=== PATIENT | female | born 1950 | race Caucasian/White ===

== ENCOUNTER 2019-04-14 14:52 | Inpatient (IN) ==
[2019-04-14] MEDS ORDERED: ALBUTEROL/IPRATROPIUM 3 ML NEB RESP TX STA (16:04)
[2019-04-14] MEDS ORDERED: FUROSEMIDE 100 MG/10 ML VIAL IV STA (16:04)
[2019-04-14 16:50] LABS: Basophils # 0.1 10*3/uL (0.0-0.2); Basophils % 1.1 % (0.0-0.8); Eosinophils # 0.2 10*3/uL (0.0-0.87); Eosinophils % 2.2 % (0.00-10.9); Hematocrit 53.5 VOL% (35.7-47.0); Hemoglobin 15.4 GM/DL (12.0-16.0); Immature Granulocytes % 0.3 %; Immature Granulocytes Absolute 0.03 #; Lymphocytes # 1.3 10*3/uL (1.4-4.0); Lymphocytes % 13.9 % (21.3-54.2); Mean Corpuscular HGB Conc 28.8 GM/DL (32-36); Mean Corpuscular Volume 93.2 FL (87-102); Monocytes % 10.8 % (1.7-12.7); Neutrophils % 71.7 % (38.7-73.9); Platelet Count 271 T/CUMM (130-400); Red Blood Count 5.74 MC/CUMM (3.8-5.5); Red Cell Distribution Width 15.3 % (9.3-17.3)
[2019-04-14 16:58] LABS: INR 1.2; PT Patient Result 12.7 SECS; Partial Thromboplastin Time 25.1 SECS (0-40)
[2019-04-14 17:06] LABS: Apearance,Urine CLEAR (Clear); Bilirubin,Urine Negative (Negative); Blood, Urine Negative (Negative); Glucose,Urine (UA) Negative (Negative); Ketones,Urine Negative (Negative); Mucus,Urine Occasional /LPF (Occasional); Nitrite,Urine Negative (Negative); Protein,Urine Negative; RBC,Urine 1 /HPF (0-4); Squamous Epithelial Cell,Urine Occasional /HPF (0-10); Urine Color Amber (Yellow); Urine Specific Gravity 1.027 (1.001-1.035); Urine Urobilinogen < 2.0 EU/DL (0.2-1.0); WBC,Urine 4 /HPF (0-6)
[2019-04-14 17:17] LABS: Alanine Aminotransferase 21 U/L (13-56); Albumin 3.2 G/DL (3.4-5.0); Alkaline Phosphatase 126 U/L (45-117); Aspartate Amino Transferase 25 U/L (0-37); Blood Urea Nitrogen 30 MG/DL (7-18); Calcium 8.9 MG/DL (8.5-10.1); Glucose 104 MG/DL (74-106); Osmolality,Calculated 293.7 MOS/KG (273-304); Total Protein 7.1 G/DL (6.4-8.3); Troponin I < 0.015 NG/ML (0.00-0.045)
[2019-04-14 17:35] LABS: Giant Platelets Few
[2019-04-14 17:36] LABS: Platelet Estimate Adequate
[2019-04-14] MEDS ORDERED: MAGNESIUM SULF RIDER 4 GM in PREMIX 1 EACH IV PRN (20:03)
[2019-04-14] MEDS ORDERED: MAGNESIUM SULF RIDER 2 GM in PREMIX 1 EACH IV PRN (20:03)
[2019-04-14] MEDS ORDERED: ONDANSETRON 4 MG/2 ML VIAL IV PRN (20:03)
[2019-04-14] MEDS ORDERED: ENOXAPARIN 40 MG/0.4 ML SYRINGE SUBCUT SCH (21:00)
[2019-04-14] MEDS ORDERED: ALBUTEROL/IPRATROPIUM 3 ML NEB RESP TX PRN (21:05)
[2019-04-15] MEDS: ACETAMINOPHEN 325 MG TABLET PO PRN ×3 (01:38→20:53)
[2019-04-15 04:44] LABS: Basophils # 0.1 10*3/uL (0.0-0.2); Basophils % 0.7 % (0.0-0.8); Eosinophils # 0.3 10*3/uL (0.0-0.87); Eosinophils % 2.6 % (0.00-10.9); Immature Granulocytes % 0.5 %; Immature Granulocytes Absolute 0.05 #; Lymphocytes # 1.4 10*3/uL (1.4-4.0); Lymphocytes % 14.2 % (21.3-54.2); Mean Corpuscular HGB Conc 27.7 GM/DL (32-36); Mean Corpuscular Volume 94.1 FL (87-102); Mean Platelet Volume 10.6 FL (9.6-12.0); Monocytes % 11.9 % (1.7-12.7); Neutrophils % 70.1 % (38.7-73.9); Platelet Count 260 T/CUMM (130-400); Red Blood Count 5.75 MC/CUMM (3.8-5.5); Red Cell Distribution Width 15.5 % (9.3-17.3); White Blood Count 9.7 T/CUMM (4-12)
[2019-04-15 05:16] LABS: Hematocrit 53.2 VOL% (35.7-47.0); Hemoglobin 14.9 GM/DL (12.0-16.0)
[2019-04-15 05:30] LABS: Calcium 8.8 MG/DL (8.5-10.1); Osmolality,Calculated 293.7 MOS/KG (273-304); Thyroid Stimulating Hormone 1.97 uIU/ml (0.358-3.74)
[2019-04-15 05:32] LABS: Anisocytosis Slight; Microcytosis 1+; Polychromasia Slight
[2019-04-15 05:33] LABS: Platelet Estimate Normal; Stomatocytes Few
[2019-04-15 08:08] LABS: Risk Ratio 2.64; VLDL CHOLESTEROL 11.8 MG/DL
[2019-04-15] MEDS: ASPIRIN CHEW 81 MG TABLET PO SCH (08:58)
[2019-04-15] MEDS: LISINOPRIL 20 MG TABLET PO SCH (08:58)
[2019-04-15] MEDS: amLODIPine 10 MG TABLET PO SCH (08:58)
[2019-04-15] MEDS: metOLazone 2.5 MG TABLET PO SCH (08:58)
[2019-04-15] MEDS: METOPROLOL TARTRATE 25 MG TABLET PO SCH (08:58)
[2019-04-15] MEDS: PANTOPRAZOLE 40 MG TABLET PO SCH (08:59)
[2019-04-15] MEDS: FUROSEMIDE 40 MG/4 ML VIAL IV SCH ×2 (08:59→17:37)
[2019-04-15] MEDS ORDERED: ENOXAPARIN 100 MG/ML SYRINGE SUBCUT SCH (11:30)
[2019-04-15] MEDS ORDERED: FUROSEMIDE 40 MG/4 ML VIAL ONE (17:18)
[2019-04-15] MEDS: SERTRALINE 25 MG TABLET PO SCH (20:53)
[2019-04-15] MEDS: APIXABAN 5 MG TABLET PO SCH (20:57)
[2019-04-16 05:44] LABS: Calcium 8.9 MG/DL (8.5-10.1)
[2019-04-16 06:14] LABS: Basophils # 0.1 10*3/uL (0.0-0.2); Basophils % 0.6 % (0.0-0.8); Eosinophils # 0.3 10*3/uL (0.0-0.87); Eosinophils % 2.6 % (0.00-10.9); Hematocrit 51.9 VOL% (35.7-47.0); Hemoglobin 14.6 GM/DL (12.0-16.0); Immature Granulocytes % 0.5 %; Immature Granulocytes Absolute 0.05 #; Lymphocytes % 9.3 % (21.3-54.2); Mean Corpuscular HGB Conc 28.1 GM/DL (32-36); Mean Corpuscular Volume 93.7 FL (87-102); Mean Platelet Volume 10.8 FL (9.6-12.0); Monocytes % 11.8 % (1.7-12.7); Neutrophils % 75.2 % (38.7-73.9); Platelet Count 245 T/CUMM (130-400); Red Blood Count 5.54 MC/CUMM (3.8-5.5); Red Cell Distribution Width 14.9 % (9.3-17.3); White Blood Count 10.5 T/CUMM (4-12)
[2019-04-16 06:39] LABS: Platelet Estimate Normal; Polychromasia Slight
[2019-04-16 06:40] LABS: Anisocytosis Slight
[2019-04-16] MEDS: ASPIRIN CHEW 81 MG TABLET PO SCH (10:23)
[2019-04-16] MEDS: metOLazone 2.5 MG TABLET PO SCH (10:24)
[2019-04-16] MEDS: METOPROLOL TARTRATE 25 MG TABLET PO SCH (10:25)
[2019-04-16] MEDS: APIXABAN 5 MG TABLET PO SCH ×2 (10:25→20:30)
[2019-04-16] MEDS: PANTOPRAZOLE 40 MG TABLET PO SCH (10:25)
[2019-04-16] MEDS: FUROSEMIDE 40 MG TABLET PO SCH (10:25)
[2019-04-16] MEDS: LISINOPRIL 20 MG TABLET PO SCH (10:27)
[2019-04-16] MEDS ORDERED: BISACODYL 5 MG TABLET PO ONE (10:28)
[2019-04-16] MEDS: amLODIPine 10 MG TABLET PO SCH (10:28)
[2019-04-16] MEDS ORDERED: LACTULOSE 20 GM/30 ML UDCUP PO ONE (10:28)
[2019-04-16] MEDS ORDERED: MAGNESIUM HYDROXIDE SUSP 30 ML UDCUP PO ONE (10:28)
[2019-04-16] MEDS: ACETAMINOPHEN 325 MG TABLET PO PRN ×2 (10:28→17:35)
[2019-04-16] MEDS ORDERED: TUBERCULIN SKIN TEST 0.1 ML SYRINGE INTRADERM ONE (16:05)
[2019-04-16] MEDS: SERTRALINE 25 MG TABLET PO SCH (20:30)
[2019-04-16] MEDS: MELATONIN 3 MG TABLET PO PRN (23:29)
[2019-04-17 05:53] LABS: Calcium 9.1 MG/DL (8.5-10.1); Osmolality,Calculated 279.5 MOS/KG (273-304)
[2019-04-17] MEDS ORDERED: SODIUM PHOSPHATE ENEMA 133 ML BOTTLE RECTAL ONE (07:04)
[2019-04-17] MEDS: PANTOPRAZOLE 40 MG TABLET PO SCH (09:20)
[2019-04-17] MEDS: ACETAMINOPHEN 325 MG TABLET PO PRN (09:20)
[2019-04-17] MEDS: ASPIRIN CHEW 81 MG TABLET PO SCH (09:21)
[2019-04-17] MEDS: metOLazone 2.5 MG TABLET PO SCH (09:21)
[2019-04-17] MEDS: FUROSEMIDE 40 MG TABLET PO SCH (09:21)
[2019-04-17] MEDS: LISINOPRIL 20 MG TABLET PO SCH (09:21)
[2019-04-17] MEDS: APIXABAN 5 MG TABLET PO SCH ×2 (09:21→21:48)
[2019-04-17] MEDS: METOPROLOL TARTRATE 25 MG TABLET PO SCH (09:21)
[2019-04-17] MEDS: amLODIPine 10 MG TABLET PO SCH (09:21)
[2019-04-17] MEDS: SERTRALINE 25 MG TABLET PO SCH (21:48)
[2019-04-17] MEDS: MELATONIN 3 MG TABLET PO PRN (22:08)
[2019-04-18] MEDS: ACETAMINOPHEN 325 MG TABLET PO PRN ×3 (04:44→16:59)
[2019-04-18] MEDS: amLODIPine 10 MG TABLET PO SCH (09:37)
[2019-04-18] MEDS: PANTOPRAZOLE 40 MG TABLET PO SCH (09:38)
[2019-04-18] MEDS: LISINOPRIL 20 MG TABLET PO SCH (09:38)
[2019-04-18] MEDS: metOLazone 2.5 MG TABLET PO SCH (09:38)
[2019-04-18] MEDS: ASPIRIN CHEW 81 MG TABLET PO SCH (09:38)
[2019-04-18] MEDS: FUROSEMIDE 40 MG TABLET PO SCH (09:38)
[2019-04-18] MEDS: APIXABAN 5 MG TABLET PO SCH ×2 (09:38→21:09)
[2019-04-18] MEDS: METOPROLOL TARTRATE 25 MG TABLET PO SCH (09:38)
[2019-04-18] MEDS: MELATONIN 3 MG TABLET PO PRN (21:09)
[2019-04-18] MEDS: SERTRALINE 25 MG TABLET PO SCH (21:09)
[2019-04-19] MEDS: METOPROLOL TARTRATE 25 MG TABLET PO SCH (09:27)
[2019-04-19] MEDS: metOLazone 2.5 MG TABLET PO SCH (09:27)
[2019-04-19] MEDS: LISINOPRIL 20 MG TABLET PO SCH (09:27)
[2019-04-19] MEDS: FUROSEMIDE 40 MG TABLET PO SCH (09:28)
[2019-04-19] MEDS: amLODIPine 10 MG TABLET PO SCH (09:28)
[2019-04-19] MEDS: ASPIRIN CHEW 81 MG TABLET PO SCH (09:28)
[2019-04-19] MEDS: PANTOPRAZOLE 40 MG TABLET PO SCH (09:28)
[2019-04-19] MEDS: APIXABAN 5 MG TABLET PO SCH ×2 (09:28→21:17)
[2019-04-19] MEDS: SERTRALINE 25 MG TABLET PO SCH (21:17)
[2019-04-19] MEDS: ACETAMINOPHEN 325 MG TABLET PO PRN (23:15)
[2019-04-20] MEDS: METOPROLOL TARTRATE 25 MG TABLET PO SCH (09:24)
[2019-04-20] MEDS: APIXABAN 5 MG TABLET PO SCH ×2 (09:24→21:17)
[2019-04-20] MEDS: PANTOPRAZOLE 40 MG TABLET PO SCH (09:24)
[2019-04-20] MEDS: metOLazone 2.5 MG TABLET PO SCH (09:24)
[2019-04-20] MEDS: LISINOPRIL 20 MG TABLET PO SCH (09:24)
[2019-04-20] MEDS: ASPIRIN CHEW 81 MG TABLET PO SCH (09:24)
[2019-04-20] MEDS: FUROSEMIDE 40 MG TABLET PO SCH (09:24)
[2019-04-20] MEDS: amLODIPine 10 MG TABLET PO SCH (09:33)
[2019-04-20] MEDS ORDERED: methylPREDNISolone ACETATE 40 MG/1 ML VIAL INTRAARTIC ONE (10:14)
[2019-04-20] MEDS ORDERED: LIDOCAINE 1% 20 ML VIAL INFILTRAT ONE (10:15)
[2019-04-20] MEDS: POLYETHYLENE GLYCOL POWDER 17 GM PACK PO SCH ×2 (14:59→21:17)
[2019-04-20] MEDS: SERTRALINE 25 MG TABLET PO SCH (21:17)
[2019-04-21] MEDS: LISINOPRIL 20 MG TABLET PO SCH (09:56)
[2019-04-21] MEDS: APIXABAN 5 MG TABLET PO SCH (09:56)
[2019-04-21] MEDS: METOPROLOL TARTRATE 25 MG TABLET PO SCH (09:56)
[2019-04-21] MEDS: FUROSEMIDE 40 MG TABLET PO SCH (09:56)
[2019-04-21] MEDS: amLODIPine 10 MG TABLET PO SCH (09:56)
[2019-04-21] MEDS: ASPIRIN CHEW 81 MG TABLET PO SCH (09:57)
[2019-04-21] MEDS: metOLazone 2.5 MG TABLET PO SCH (09:57)
[2019-04-21] MEDS: PANTOPRAZOLE 40 MG TABLET PO SCH (09:57)
[2019-04-21] MEDS: POLYETHYLENE GLYCOL POWDER 17 GM PACK PO SCH (09:57)
[2019-04-21 12:04] VITALS: BP 111/71
== END 2019-04-21 16:00 | DRG 292 ==
LOC: EDUNIT# → N.ED 14:52 → N.EDINP 20:03 → SUATTDRO 20:07 → N.5E 20:47
PROVIDERS: ADMIT Internal Medicine; ATTEND Internal Medicine

== ENCOUNTER 2019-11-25 11:34 | Inpatient (IN) ==
[2019-11-25 12:21] LABS: Basophils # 0.1 10*3/uL (0.0-0.2); Basophils % 0.5 % (0.0-0.8); Eosinophils # 0.1 10*3/uL (0.0-0.87); Eosinophils % 0.9 % (0.00-10.9); Hematocrit 45.3 VOL% (35.7-47.0); Immature Granulocytes % 0.3 %; Immature Granulocytes Absolute 0.04 #; Lymphocytes # 1.8 10*3/uL (1.4-4.0); Mean Corpuscular HGB Conc 33.1 GM/DL (32-36); Mean Corpuscular Volume 88.6 FL (87-102); Mean Platelet Volume 10.6 FL (9.6-12.0); Monocytes % 9.3 % (1.7-12.7); Platelet Count 309 T/CUMM (130-400); Red Blood Count 5.11 MC/CUMM (3.8-5.5); Red Cell Distribution Width 12.7 % (9.3-17.3)
[2019-11-25 12:36] LABS: Albumin 3.2 G/DL (3.4-5.0); Calcium 9.9 MG/DL (8.5-10.1); Osmolality,Calculated 275.5 MOS/KG (273-304); Total Protein 7.9 G/DL (6.4-8.3)
[2019-11-25] MEDS ORDERED: POTASSIUM CHLORIDE 20 MEQ TABLET PO STA (12:50)
[2019-11-25] MEDS ORDERED: guaiFENesin/DM ER 600-30 MG TABLET PO PRN (13:22)
[2019-11-25] MEDS ORDERED: PROMETHAZINE 25 MG/1 ML VIAL IM PRN (13:22)
[2019-11-25] MEDS ORDERED: ACETAMINOPHEN 325 MG TABLET PO PRN (13:22)
[2019-11-25] MEDS ORDERED: ZALEPLON 5 MG CAPSULE PO PRN (13:22)
[2019-11-25] MEDS ORDERED: MORPHINE 4 MG/1 ML VIAL IV PRN (13:22)
[2019-11-25] MEDS ORDERED: ONDANSETRON 4 MG/2 ML VIAL IV PRN (13:22)
[2019-11-25] MEDS ORDERED: traZODone 50 MG TABLET PO PRN (13:22)
[2019-11-25] MEDS ORDERED: PROMETHAZINE 25 MG TABLET PO PRN (13:22)
[2019-11-25] MEDS ORDERED: diphenhydrAMINE CAP 25 MG CAPSULE PO PRN (13:22)
[2019-11-25] MEDS: SODIUM CHLORIDE 0.9% 1,000 ML IV SCH (14:00)
[2019-11-25] MEDS ORDERED: POTASSIUM CHLORIDE INJ 50 MEQ in SODIUM CHLORIDE 0.9% 500 ML IV ONE (16:30)
[2019-11-25] MEDS ORDERED: FUROSEMIDE 40 MG TABLET PO SCH (17:00)
[2019-11-25] MEDS: POTASSIUM CHLORIDE RIDER 10 MEQ in PREMIX 1 EACH IV PRN (17:04)
[2019-11-25 19:59] LABS: Apearance,Urine CLEAR (Clear); Bilirubin,Urine Negative (Negative); Blood, Urine Negative (Negative); Glucose,Urine (UA) Negative (Negative); Hyaline Casts,Urine 1 /LPF (0-3); Ketones,Urine Negative (Negative); Mucus,Urine Occasional /LPF (Occasional); Nitrite,Urine Negative (Negative); Protein,Urine Negative; RBC,Urine 1 /HPF (0-4); Squamous Epithelial Cell,Urine Occasional /HPF (0-10); Urine Color Straw (Yellow); Urine Specific Gravity 1.006 (1.001-1.035); Urine Urobilinogen < 2.0 EU/DL (0.2-1.0); WBC,Urine 6 /HPF (0-6)
[2019-11-25] MEDS ORDERED: hydrALAZINE 25 MG TABLET PO SCH (21:00)
[2019-11-25] MEDS: APIXABAN 5 MG TABLET PO SCH (21:35)
[2019-11-25] MEDS: DOCUSATE SODIUM 100 MG CAPSULE PO SCH (21:35)
[2019-11-25] MEDS: SERTRALINE 25 MG TABLET PO SCH (21:35)
[2019-11-26 05:42] LABS: Basophils # 0.1 10*3/uL (0.0-0.2); Basophils % 0.6 % (0.0-0.8); Eosinophils # 0.3 10*3/uL (0.0-0.87); Eosinophils % 3.5 % (0.00-10.9); Hematocrit 40.2 VOL% (35.7-47.0); Hemoglobin 13.1 GM/DL (12.0-16.0); Immature Granulocytes % 0.4 %; Immature Granulocytes Absolute 0.04 #; Lymphocytes % 22.3 % (21.3-54.2); Mean Corpuscular HGB Conc 32.6 GM/DL (32-36); Mean Corpuscular Volume 90.1 FL (87-102); Mean Platelet Volume 10.5 FL (9.6-12.0); Monocytes % 11.8 % (1.7-12.7); Neutrophils % 61.4 % (38.7-73.9); Platelet Count 267 T/CUMM (130-400); Red Blood Count 4.46 MC/CUMM (3.8-5.5); Red Cell Distribution Width 12.8 % (9.3-17.3)
[2019-11-26 06:12] LABS: Albumin 2.7 G/DL (3.4-5.0); Bilirubin,Total 1.2 MG/DL (0.2-1.0); Calcium 8.7 MG/DL (8.5-10.1); Osmolality,Calculated 286.5 MOS/KG (273-304); Risk Ratio 2.82; Thyroid Stimulating Hormone 0.685 uIU/ml (0.358-3.74); Total Protein 6.4 G/DL (6.4-8.3); VLDL CHOLESTEROL 22.2 MG/DL
[2019-11-26] MEDS ORDERED: POTASSIUM CHLORIDE 20 MEQ TABLET PO ONE (06:30)
[2019-11-26] MEDS: POTASSIUM CHLORIDE RIDER 10 MEQ in PREMIX 1 EACH IV SCH ×6 (06:51→16:11)
[2019-11-26] MEDS: DOCUSATE SODIUM 100 MG CAPSULE PO SCH ×2 (08:55→21:05)
[2019-11-26] MEDS: PANTOPRAZOLE 40 MG TABLET PO SCH (08:55)
[2019-11-26] MEDS: METOPROLOL TARTRATE 25 MG TABLET PO SCH (08:55)
[2019-11-26] MEDS: APIXABAN 5 MG TABLET PO SCH ×2 (08:55→21:05)
[2019-11-26] MEDS: ASPIRIN CHEW 81 MG TABLET PO SCH (08:55)
[2019-11-26] MEDS ORDERED: metOLazone 2.5 MG TABLET PO SCH (09:00)
[2019-11-26] MEDS ORDERED: amLODIPine 10 MG TABLET PO SCH (09:00)
[2019-11-26] MEDS ORDERED: MAGNESIUM SULF RIDER 2 GM in PREMIX 1 EACH IV ONE (09:00)
[2019-11-26] MEDS: SODIUM CHLORIDE 0.9% 1,000 ML IV SCH (09:19)
[2019-11-26] MEDS: SODIUM CHLOR 0.9% KCL 40 MEQ 40 MEQ/1,000 ML BAG IV SCH (10:33)
[2019-11-26] MEDS ORDERED: LEVOFLOXACIN 500 MG TABLET PO ONE (11:00)
[2019-11-26] MEDS: SERTRALINE 25 MG TABLET PO SCH (21:05)
[2019-11-27 05:06] LABS: Basophils # 0.1 10*3/uL (0.0-0.2); Basophils % 0.8 % (0.0-0.8); Eosinophils # 0.5 10*3/uL (0.0-0.87); Eosinophils % 5.8 % (0.00-10.9); Hematocrit 38.2 VOL% (35.7-47.0); Hemoglobin 12.4 GM/DL (12.0-16.0); Immature Granulocytes % 0.3 %; Immature Granulocytes Absolute 0.03 #; Lymphocytes # 2.3 10*3/uL (1.4-4.0); Lymphocytes % 25.5 % (21.3-54.2); Mean Corpuscular HGB Conc 32.5 GM/DL (32-36); Mean Corpuscular Volume 91.2 FL (87-102); Mean Platelet Volume 10.4 FL (9.6-12.0); Monocytes % 10.5 % (1.7-12.7); Neutrophils % 57.1 % (38.7-73.9); Platelet Count 264 T/CUMM (130-400); Red Blood Count 4.19 MC/CUMM (3.8-5.5); Red Cell Distribution Width 12.8 % (9.3-17.3); White Blood Count 9.2 T/CUMM (4-12)
[2019-11-27 05:46] LABS: Albumin 2.7 G/DL (3.4-5.0); Bilirubin,Total 1.9 MG/DL (0.2-1.0); Calcium 8.5 MG/DL (8.5-10.1); Osmolality,Calculated 282.5 MOS/KG (273-304); Total Protein 6.2 G/DL (6.4-8.3)
[2019-11-27] MEDS ORDERED: POTASSIUM CHLORIDE 20 MEQ TABLET PO ONE (06:43)
[2019-11-27] MEDS: SODIUM CHLOR 0.9% KCL 40 MEQ 40 MEQ/1,000 ML BAG IV SCH (08:15)
[2019-11-27] MEDS: ASPIRIN CHEW 81 MG TABLET PO SCH (08:50)
[2019-11-27] MEDS: PANTOPRAZOLE 40 MG TABLET PO SCH (08:51)
[2019-11-27] MEDS: DOCUSATE SODIUM 100 MG CAPSULE PO SCH ×2 (08:51→20:32)
[2019-11-27] MEDS: APIXABAN 5 MG TABLET PO SCH ×2 (08:52→20:32)
[2019-11-27] MEDS: METOPROLOL TARTRATE 25 MG TABLET PO SCH (08:52)
[2019-11-27] MEDS ORDERED: LEVOFLOXACIN 500 MG TABLET PO SCH (09:00)
[2019-11-27] MEDS: POTASSIUM CHLORIDE RIDER 10 MEQ in PREMIX 1 EACH IV PRN ×5 (10:23→15:48)
[2019-11-27] MEDS: NITROFURANTOIN MACRO/MONO 100 MG CAPSULE PO SCH (20:32)
[2019-11-27] MEDS: SERTRALINE 25 MG TABLET PO SCH (20:32)
[2019-11-28] MEDS: SODIUM CHLOR 0.9% KCL 40 MEQ 40 MEQ/1,000 ML BAG IV SCH (04:15)
[2019-11-28 06:01] LABS: Basophils # 0.1 10*3/uL (0.0-0.2); Basophils % 0.7 % (0.0-0.8); Eosinophils # 0.5 10*3/uL (0.0-0.87); Eosinophils % 5.3 % (0.00-10.9); Hematocrit 39.2 VOL% (35.7-47.0); Hemoglobin 12.2 GM/DL (12.0-16.0); Immature Granulocytes % 0.4 %; Immature Granulocytes Absolute 0.03 #; Lymphocytes # 2.3 10*3/uL (1.4-4.0); Lymphocytes % 27.4 % (21.3-54.2); Mean Corpuscular HGB Conc 31.1 GM/DL (32-36); Mean Corpuscular Volume 94.7 FL (87-102); Mean Platelet Volume 10.8 FL (9.6-12.0); Monocytes % 10.9 % (1.7-12.7); Neutrophils % 55.3 % (38.7-73.9); Platelet Count 255 T/CUMM (130-400); Red Blood Count 4.14 MC/CUMM (3.8-5.5); Red Cell Distribution Width 12.9 % (9.3-17.3); White Blood Count 8.5 T/CUMM (4-12)
[2019-11-28 06:25] LABS: Albumin 2.7 G/DL (3.4-5.0); Bilirubin,Total 0.7 MG/DL (0.2-1.0); Calcium 8.4 MG/DL (8.5-10.1); Osmolality,Calculated 288.8 MOS/KG (273-304); Total Protein 6.1 G/DL (6.4-8.3)
[2019-11-28] MEDS: ASPIRIN CHEW 81 MG TABLET PO SCH (08:13)
[2019-11-28] MEDS: NITROFURANTOIN MACRO/MONO 100 MG CAPSULE PO SCH ×2 (08:13→20:18)
[2019-11-28] MEDS: METOPROLOL TARTRATE 25 MG TABLET PO SCH (08:13)
[2019-11-28] MEDS: APIXABAN 5 MG TABLET PO SCH ×2 (08:13→20:19)
[2019-11-28] MEDS: DOCUSATE SODIUM 100 MG CAPSULE PO SCH ×2 (08:13→20:18)
[2019-11-28] MEDS: POTASSIUM CHLORIDE 20 MEQ/15 ML UDCUP PER TUBE PRN ×3 (08:13→15:11)
[2019-11-28] MEDS: PANTOPRAZOLE 40 MG TABLET PO SCH (08:14)
[2019-11-28] MEDS: PHENAZOPYRIDINE 95 MG TABLET PO SCH ×2 (08:14→17:02)
[2019-11-28] MEDS: SERTRALINE 25 MG TABLET PO SCH (20:19)
[2019-11-29] MEDS: ASPIRIN CHEW 81 MG TABLET PO SCH (08:55)
[2019-11-29] MEDS: NITROFURANTOIN MACRO/MONO 100 MG CAPSULE PO SCH (08:55)
[2019-11-29] MEDS: PANTOPRAZOLE 40 MG TABLET PO SCH (08:55)
[2019-11-29] MEDS: APIXABAN 5 MG TABLET PO SCH (08:55)
[2019-11-29] MEDS: DOCUSATE SODIUM 100 MG CAPSULE PO SCH (08:55)
[2019-11-29] MEDS: METOPROLOL TARTRATE 25 MG TABLET PO SCH (08:57)
[2019-11-29] MEDS: PHENAZOPYRIDINE 95 MG TABLET PO SCH (10:50)
[2019-11-29 12:14] VITALS: BP 106/44
== END 2019-11-29 11:55 | disposition home health service (06) | DRG 641 ==
LOC: EDUNIT# → EDBD → N.ED 11:34 → N.EDINP 13:22 → N.2E 14:55
PROVIDERS: ADMIT Internal Medicine; ATTEND Internal Medicine

== ENCOUNTER 2020-03-27 13:07 | Inpatient (IN) ==
[2020-03-27] MEDS ORDERED: DIPH/TET/ACEL PERT BOOSTER VACCINE 0.5 ML VIAL IM ONE (13:46)
[2020-03-27] MEDS ORDERED: ONDANSETRON 4 MG/2 ML VIAL IV STA (13:46)
[2020-03-27] MEDS ORDERED: KETOROLAC 30 MG/1 ML VIAL IV STA (13:46)
[2020-03-27] MEDS ORDERED: ALBUTEROL/IPRATROPIUM 3 ML NEB RESP TX STA (15:12)
[2020-03-27] MEDS ORDERED: FUROSEMIDE 100 MG/10 ML VIAL IV STA (15:12)
[2020-03-27] MEDS ORDERED: methylPREDNISolone SOD SUC 125 MG/2 ML VIAL IV STA (15:12)
[2020-03-27 15:55] LABS: INR 1.2; PT Patient Result 12.5 SECS (9.8-11.9)
[2020-03-27 16:08] LABS: Basophils # 0.1 10*3/uL (0.0-0.2); Basophils % 0.6 % (0.0-0.8); Eosinophils # 0.2 10*3/uL (0.0-0.87); Eosinophils % 0.9 % (0.00-10.9); Hematocrit 37.3 VOL% (35.7-47.0); Immature Granulocytes % 0.6 %; Lymphocytes # 1.3 10*3/uL (1.4-4.0); Lymphocytes % 7.8 % (21.3-54.2); Mean Corpuscular HGB Conc 27.3 GM/DL (32-36); Mean Corpuscular Volume 90.1 FL (87-102); Mean Platelet Volume 10.4 FL (9.6-12.0); Monocytes % 10.4 % (1.7-12.7); NRBC # 0.02 10*3/uL; Neutrophils % 79.7 % (38.7-73.9); Platelet Count 322 T/CUMM (130-400); Red Blood Count 4.14 MC/CUMM (3.8-5.5); Red Cell Distribution Width 15.8 % (9.3-17.3); White Blood Count 16.2 T/CUMM (4-12)
[2020-03-27 16:09] LABS: Hemoglobin 10.2 GM/DL (12.0-16.0)
[2020-03-27 16:18] LABS: Apearance,Urine CLEAR (Clear); Bilirubin,Urine Negative (Negative); Blood, Urine Negative (Negative); Glucose,Urine (UA) Negative (Negative); Hyaline Casts,Urine 7 /LPF (0-3); Ketones,Urine Negative (Negative); Mucus,Urine Occasional /LPF (Occasional); Nitrite,Urine Negative (Negative); Protein,Urine Negative; RBC,Urine 3 /HPF (0-4); Squamous Epithelial Cell,Urine Occasional /HPF (0-10); Urine Color Yellow (Yellow); Urine Urobilinogen < 2.0 EU/DL (0.2-1.0); WBC,Urine 2 /HPF (0-6)
[2020-03-27 16:25] LABS: Albumin 3.1 G/DL (3.4-5.0); Bilirubin,Total 0.7 MG/DL (0.2-1.0); Calcium 9.1 MG/DL (8.5-10.1); Osmolality,Calculated 275.1 MOS/KG (273-304); Total Protein 7.6 G/DL (6.4-8.3)
[2020-03-27] MEDS ORDERED: NALOXONE 0.4 MG/ML VIAL IV STA (19:47)
[2020-03-27 20:23] LABS: ABG HCO3 38.7 MMOL/L (20-26); ABG Oxygen Saturation 87.2 % (95-100); ABG PO2 71.4 MM HG (80-95); ABG TCO2 48.8 MMOL/L (23-27)
[2020-03-27 20:24] LABS: Allen Test Positive
[2020-03-27 20:26] LABS: ABG PH 7.109 (7.35-7.45)
[2020-03-27] MEDS ORDERED: ONDANSETRON 4 MG/2 ML VIAL IV PRN (20:33)
[2020-03-27] MEDS ORDERED: POTASSIUM CHLORIDE 20 MEQ TABLET PO PRN (20:38)
[2020-03-27 21:24] LABS: ABG Base Excess 15.1 MMOL/L (-2.5-2.5); ABG HCO3 38.9 MMOL/L (20-26); ABG Oxygen Saturation 93.9 % (95-100); ABG PO2 91.6 MM HG (80-95); ABG TCO2 49.4 MMOL/L (23-27)
[2020-03-27 21:26] LABS: ABG PH 7.096 (7.35-7.45)
[2020-03-27] MEDS ORDERED: ETOMIDATE 20 MG/10 ML VIAL IV ONE (21:28)
[2020-03-27] MEDS ORDERED: VECURONIUM 10 MG VIAL IV ONE (21:28)
[2020-03-27 22:43] LABS: ABG HCO3 42.2 MMOL/L (20-26); ABG PCO2 65.5 MM HG (35-48); ABG PH 7.451 (7.35-7.45); Allen Test Positive; Pt O2 Delivery Device Ventilator
[2020-03-28] MEDS: LORazepam 2 MG/1 ML VIAL IV PRN ×3 (00:44→13:13)
[2020-03-28] MEDS: SERTRALINE 25 MG TABLET PO SCH ×2 (00:55→22:04)
[2020-03-28] MEDS: PANTOPRAZOLE 40 MG VIAL IV SCH ×2 (00:55→22:04)
[2020-03-28] MEDS: APIXABAN 5 MG TABLET PO SCH ×3 (00:55→22:04)
[2020-03-28] MEDS ORDERED: PHENYLEPHRINE DRIP 40 MG/250 ML PREMIX IV PRN (01:44)
[2020-03-28] MEDS ORDERED: LORazepam 2 MG/1 ML VIAL IV ONE ×2 (01:44→03:49)
[2020-03-28] MEDS: DICLOFENAC 1.3% PATCH 5/PACK TRANSDERM SCH ×4 (01:58→22:04)
[2020-03-28] MEDS: MIDAZOLAM 100 MG in SODIUM CHLORIDE 0.9% 80 ML IV PRN ×2 (02:26→15:55)
[2020-03-28 03:37] LABS: Basophils % 0.1 % (0.0-0.8); Hematocrit 34.5 VOL% (35.7-47.0); Hemoglobin 9.7 GM/DL (12.0-16.0); Immature Granulocytes % 0.4 %; Immature Granulocytes Absolute 0.05 #; Lymphocytes # 0.5 10*3/uL (1.4-4.0); Lymphocytes % 3.6 % (21.3-54.2); Mean Corpuscular HGB Conc 28.1 GM/DL (32-36); Mean Corpuscular Volume 88.5 FL (87-102); Mean Platelet Volume 10.2 FL (9.6-12.0); Monocytes % 5.3 % (1.7-12.7); Neutrophils % 90.6 % (38.7-73.9); Platelet Count 234 T/CUMM (130-400); Red Cell Distribution Width 15.4 % (9.3-17.3); White Blood Count 12.7 T/CUMM (4-12)
[2020-03-28 03:48] LABS: Albumin 2.6 G/DL (3.4-5.0); Bilirubin,Total 1.1 MG/DL (0.2-1.0); Osmolality,Calculated 278.8 MOS/KG (273-304); Total Protein 6.6 G/DL (6.4-8.3)
[2020-03-28 04:10] LABS: ABG HCO3 47.7 MMOL/L (20-26); ABG Oxygen Saturation 98.4 % (95-100); ABG PCO2 59.2 MM HG (35-48); ABG PH 7.524 (7.35-7.45); ABG PO2 99.8 MM HG (80-95); ABG TCO2 49.5 MMOL/L (23-27); Allen Test Positive; Pt O2 Delivery Device Ventilator
[2020-03-28 04:30] LABS: Hypochromasia 1+; Lymphocytes 2 % (20-55); Platelet Estimate Adequate; Segmented Neutrophils 95 % (50-85); Total Cells Counted 100
[2020-03-28] MEDS ORDERED: amLODIPine 10 MG TABLET PO SCH (09:00)
[2020-03-28] MEDS ORDERED: PANTOPRAZOLE 40 MG TABLET PO SCH (09:00)
[2020-03-28] MEDS: METOPROLOL TARTRATE 25 MG TABLET PO SCH (09:14)
[2020-03-28] MEDS: hydrALAZINE 25 MG TABLET PO SCH ×2 (09:14→22:03)
[2020-03-28] MEDS: ASPIRIN CHEW 81 MG TABLET PO SCH (09:15)
[2020-03-28] MEDS: FUROSEMIDE 40 MG/4 ML VIAL IV SCH ×2 (09:15→18:17)
[2020-03-28] MEDS ORDERED: DEXTROSE 10% 250 ML BAG IV PRN (11:16)
[2020-03-28] MEDS ORDERED: GLUCAGON 1 MG VIAL IM PRN (11:16)
[2020-03-28] MEDS ORDERED: POTASSIUM CHLORIDE 20 MEQ/15 ML UDCUP PER TUBE PRN (18:23)
[2020-03-29 03:08] LABS: Basophils % 0.2 % (0.0-0.8); Eosinophils # 0.1 10*3/uL (0.0-0.87); Eosinophils % 0.3 % (0.00-10.9); Hematocrit 30.2 VOL% (35.7-47.0); Hemoglobin 9.1 GM/DL (12.0-16.0); Immature Granulocytes % 0.5 %; Immature Granulocytes Absolute 0.07 #; Lymphocytes # 1.2 10*3/uL (1.4-4.0); Lymphocytes % 8.1 % (21.3-54.2); Mean Corpuscular HGB Conc 30.1 GM/DL (32-36); Mean Corpuscular Volume 82.5 FL (87-102); Mean Platelet Volume 10.4 FL (9.6-12.0); Monocytes % 10.8 % (1.7-12.7); Neutrophils % 80.1 % (38.7-73.9); Platelet Count 254 T/CUMM (130-400); Red Blood Count 3.66 MC/CUMM (3.8-5.5); Red Cell Distribution Width 16.4 % (9.3-17.3); White Blood Count 14.3 T/CUMM (4-12)
[2020-03-29] MEDS: MIDAZOLAM 100 MG in SODIUM CHLORIDE 0.9% 80 ML IV PRN ×3 (03:20→23:16)
[2020-03-29 03:29] LABS: Calcium 8.6 MG/DL (8.5-10.1); Osmolality,Calculated 283.4 MOS/KG (273-304)
[2020-03-29 04:07] LABS: ABG Base Excess 22.6 MMOL/L (-2.5-2.5); ABG HCO3 47.6 MMOL/L (20-26); ABG Oxygen Saturation 97.8 % (95-100); ABG PCO2 54.6 MM HG (35-48); ABG PH 7.558 (7.35-7.45); ABG PO2 97.9 MM HG (80-95); ABG TCO2 49.2 MMOL/L (23-27); Allen Test Positive; Pt O2 Delivery Device Ventilator
[2020-03-29] MEDS ORDERED: POTASSIUM CHLORIDE 20 MEQ/15 ML UDCUP PER TUBE PRN (05:38)
[2020-03-29] MEDS ORDERED: POTASSIUM CHLORIDE 20 MEQ/15 ML UDCUP PER TUBE ONE (05:49)
[2020-03-29] MEDS: FUROSEMIDE 40 MG/4 ML VIAL IV SCH ×2 (08:10→16:01)
[2020-03-29] MEDS: ASPIRIN CHEW 81 MG TABLET PO SCH (08:10)
[2020-03-29] MEDS: METOPROLOL TARTRATE 25 MG TABLET PO SCH (08:10)
[2020-03-29] MEDS: hydrALAZINE 25 MG TABLET PO SCH ×2 (08:10→21:22)
[2020-03-29] MEDS: APIXABAN 5 MG TABLET PO SCH ×2 (08:10→21:22)
[2020-03-29] MEDS: DICLOFENAC 1.3% PATCH 5/PACK TRANSDERM SCH ×2 (08:11→21:22)
[2020-03-29] MEDS ORDERED: POTASSIUM CHLORIDE 20 MEQ/15 ML UDCUP PER TUBE SCH ×2 (09:30→18:21)
[2020-03-29 15:51] LABS: Calcium 8.6 MG/DL (8.5-10.1); Osmolality,Calculated 281.5 MOS/KG (273-304)
[2020-03-29] MEDS: POTASSIUM CHLORIDE 20 MEQ/15 ML UDCUP PER TUBE PRN ×3 (16:15→19:50)
[2020-03-29] MEDS ORDERED: INSULIN REGULAR 100 UNIT/ML SUBCUT SCH (16:30)
[2020-03-29] MEDS: INSULIN REGULAR 100 UNIT/ML SUBCUT SCH (17:50)
[2020-03-29] MEDS: PANTOPRAZOLE 40 MG VIAL IV SCH (21:18)
[2020-03-29] MEDS: SERTRALINE 25 MG TABLET PO SCH (21:20)
[2020-03-29] MEDS: POTASSIUM CHLORIDE 20 MEQ/15 ML UDCUP PO SCH (21:24)
[2020-03-30] MEDS: INSULIN REGULAR 100 UNIT/ML SUBCUT SCH ×4 (00:02→17:51)
[2020-03-30 04:27] LABS: ABG Base Excess 16.6 MMOL/L (-2.5-2.5); ABG HCO3 42.9 MMOL/L (20-26); ABG Oxygen Saturation 96.2 % (95-100); ABG PCO2 62.7 MM HG (35-48); ABG PH 7.453 (7.35-7.45); ABG TCO2 44.8 MMOL/L (23-27); Allen Test Positive; Pt O2 Delivery Device Ventilator
[2020-03-30 06:26] LABS: Calcium 8.8 MG/DL (8.5-10.1); Osmolality,Calculated 284.3 MOS/KG (273-304)
[2020-03-30] MEDS: POTASSIUM CHLORIDE 20 MEQ/15 ML UDCUP PER TUBE PRN ×2 (06:37→08:36)
[2020-03-30 07:10] LABS: Basophils # 0.1 10*3/uL (0.0-0.2); Basophils % 0.4 % (0.0-0.8); Eosinophils # 0.2 10*3/uL (0.0-0.87); Hematocrit 32.7 VOL% (35.7-47.0); Immature Granulocytes % 0.3 %; Immature Granulocytes Absolute 0.04 #; Lymphocytes # 1.3 10*3/uL (1.4-4.0); Lymphocytes % 10.6 % (21.3-54.2); Mean Corpuscular HGB Conc 29.1 GM/DL (32-36); Mean Corpuscular Volume 83.6 FL (87-102); Mean Platelet Volume 11.3 FL (9.6-12.0); Monocytes % 11.9 % (1.7-12.7); Neutrophils % 74.8 % (38.7-73.9); Platelet Count 250 T/CUMM (130-400); Red Blood Count 3.91 MC/CUMM (3.8-5.5); Red Cell Distribution Width 16.6 % (9.3-17.3); White Blood Count 11.8 T/CUMM (4-12)
[2020-03-30 07:15] LABS: Hemoglobin 9.5 GM/DL (12.0-16.0)
[2020-03-30 07:23] LABS: Hypochromasia 1+; Platelet Estimate Adequate
[2020-03-30] MEDS: FUROSEMIDE 40 MG/4 ML VIAL IV SCH ×2 (08:36→16:55)
[2020-03-30] MEDS: POTASSIUM CHLORIDE 20 MEQ/15 ML UDCUP PO SCH ×2 (08:36→20:58)
[2020-03-30] MEDS: ASPIRIN CHEW 81 MG TABLET PO SCH (08:37)
[2020-03-30] MEDS: APIXABAN 5 MG TABLET PO SCH ×2 (08:37→20:58)
[2020-03-30] MEDS: DICLOFENAC 1.3% PATCH 5/PACK TRANSDERM SCH ×2 (08:37→20:59)
[2020-03-30] MEDS: METOPROLOL TARTRATE 25 MG TABLET PO SCH (08:37)
[2020-03-30] MEDS: hydrALAZINE 25 MG TABLET PO SCH ×2 (08:39→20:58)
[2020-03-30] MEDS: SERTRALINE 25 MG TABLET PO SCH (20:59)
[2020-03-30] MEDS: PANTOPRAZOLE 40 MG VIAL IV SCH (20:59)
[2020-03-31] MEDS: INSULIN REGULAR 100 UNIT/ML SUBCUT SCH ×4 (00:15→19:01)
[2020-03-31 04:11] LABS: Allen Test Positive; Pt O2 Delivery Device Ventilator
[2020-03-31 04:13] LABS: ABG Base Excess 12.6 MMOL/L (-2.5-2.5); ABG HCO3 40.1 MMOL/L (20-26); ABG Oxygen Saturation 94.4 % (95-100); ABG PH 7.372 (7.35-7.45); ABG PO2 76.2 MM HG (80-95); ABG TCO2 42.3 MMOL/L (23-27)
[2020-03-31 04:14] LABS: ABG PCO2 70.7 MM HG (35-48)
[2020-03-31 06:12] LABS: Calcium 8.9 MG/DL (8.5-10.1)
[2020-03-31 06:25] LABS: Basophils # 0.1 10*3/uL (0.0-0.2); Basophils % 0.4 % (0.0-0.8); Eosinophils # 0.3 10*3/uL (0.0-0.87); Eosinophils % 2.5 % (0.00-10.9); Hematocrit 34.6 VOL% (35.7-47.0); Hemoglobin 9.7 GM/DL (12.0-16.0); Immature Granulocytes % 0.3 %; Immature Granulocytes Absolute 0.04 #; Lymphocytes # 0.8 10*3/uL (1.4-4.0); Lymphocytes % 6.9 % (21.3-54.2); Mean Corpuscular Volume 87.2 FL (87-102); Mean Platelet Volume 11.1 FL (9.6-12.0); Neutrophils % 77.9 % (38.7-73.9); Platelet Count 257 T/CUMM (130-400); Red Blood Count 3.97 MC/CUMM (3.8-5.5); Red Cell Distribution Width 16.2 % (9.3-17.3); White Blood Count 11.8 T/CUMM (4-12)
[2020-03-31 06:48] LABS: Hypochromasia 1+; Platelet Estimate Adequate
[2020-03-31] MEDS: POTASSIUM CHLORIDE 20 MEQ/15 ML UDCUP PER TUBE PRN (06:53)
[2020-03-31 07:38] LABS: ABG Base Excess 12.3 MMOL/L (-2.5-2.5); ABG Oxygen Saturation 93.8 % (95-100); ABG PCO2 60.2 MM HG (35-48); ABG PO2 67.4 MM HG (80-95); ABG TCO2 35.7 MMOL/L (23-27); Pt O2 Delivery Device Ventilator
[2020-03-31] MEDS: POTASSIUM CHLORIDE 20 MEQ/15 ML UDCUP PO SCH ×2 (08:40→21:10)
[2020-03-31] MEDS: METOPROLOL TARTRATE 25 MG TABLET PO SCH (08:40)
[2020-03-31] MEDS: hydrALAZINE 25 MG TABLET PO SCH ×2 (08:40→21:11)
[2020-03-31] MEDS: ASPIRIN CHEW 81 MG TABLET PO SCH (08:40)
[2020-03-31] MEDS: APIXABAN 5 MG TABLET PO SCH ×2 (08:40→21:10)
[2020-03-31] MEDS: DICLOFENAC 1.3% PATCH 5/PACK TRANSDERM SCH ×2 (08:41→21:11)
[2020-03-31] MEDS: FUROSEMIDE 40 MG/4 ML VIAL IV SCH (08:42)
[2020-03-31] MEDS ORDERED: MIDAZOLAM 10 MG/2 ML VIAL ONE (10:32)
[2020-03-31] MEDS ORDERED: MIDAZOLAM 2 MG/2 ML VIAL IV ONE (10:42)
[2020-03-31] MEDS: DEXMEDETOMIDINE 400 MCG in SODIUM CHLORIDE 0.9% 96 ML IV PRN (11:00)
[2020-03-31] MEDS: methylPREDNISolone SOD SUC 40 MG/1 ML VIAL IV SCH ×2 (11:12→22:27)
[2020-03-31] MEDS: ARFORMOTEROL 15 MCG/2 ML NEB RESP TX SCH (19:15)
[2020-03-31] MEDS: SERTRALINE 25 MG TABLET PO SCH (21:10)
[2020-03-31] MEDS: PANTOPRAZOLE 40 MG VIAL IV SCH (21:12)
[2020-04-01] MEDS: INSULIN REGULAR 100 UNIT/ML SUBCUT SCH ×4 (00:26→18:15)
[2020-04-01] MEDS: DEXMEDETOMIDINE 400 MCG in SODIUM CHLORIDE 0.9% 96 ML IV PRN (00:28)
[2020-04-01] MEDS: POTASSIUM CHLORIDE 20 MEQ/15 ML UDCUP PER TUBE PRN (05:23)
[2020-04-01 05:32] LABS: Basophils % 0.1 % (0.0-0.8); Hematocrit 34.3 VOL% (35.7-47.0); Hemoglobin 10.1 GM/DL (12.0-16.0); Immature Granulocytes % 0.5 %; Immature Granulocytes Absolute 0.07 #; Lymphocytes # 0.6 10*3/uL (1.4-4.0); Lymphocytes % 4.1 % (21.3-54.2); Mean Corpuscular HGB Conc 29.4 GM/DL (32-36); Mean Corpuscular Volume 82.9 FL (87-102); Mean Platelet Volume 11.3 FL (9.6-12.0); Monocytes % 2.4 % (1.7-12.7); Neutrophils % 92.9 % (38.7-73.9); Platelet Count 289 T/CUMM (130-400); Red Blood Count 4.14 MC/CUMM (3.8-5.5); Red Cell Distribution Width 16.3 % (9.3-17.3); White Blood Count 13.5 T/CUMM (4-12)
[2020-04-01 05:41] LABS: ABG Base Excess 9.6 MMOL/L (-2.5-2.5); ABG HCO3 33.3 MMOL/L (20-26); ABG Oxygen Saturation 98.9 % (95-100); ABG PCO2 54.6 MM HG (35-48); ABG PH 7.424 (7.35-7.45); ABG TCO2 32.4 MMOL/L (23-27); Allen Test Positive; Pt O2 Delivery Device Ventilator
[2020-04-01 05:48] LABS: Band Neutrophils 1 % (0-10); Hypochromasia 1+; Lymphocytes 3 % (20-55); Microcytosis 1+; Segmented Neutrophils 95 % (50-85); Total Cells Counted 100
[2020-04-01 05:49] LABS: Ovalocytes Slight; Platelet Estimate Normal
[2020-04-01] MEDS: ARFORMOTEROL 15 MCG/2 ML NEB RESP TX SCH ×2 (07:40→19:13)
[2020-04-01] MEDS: APIXABAN 5 MG TABLET PO SCH ×2 (09:50→21:27)
[2020-04-01] MEDS: DICLOFENAC 1.3% PATCH 5/PACK TRANSDERM SCH ×2 (09:50→21:28)
[2020-04-01] MEDS: ASPIRIN CHEW 81 MG TABLET PO SCH (09:50)
[2020-04-01] MEDS: hydrALAZINE 25 MG TABLET PO SCH ×2 (09:50→21:28)
[2020-04-01] MEDS: POTASSIUM CHLORIDE 20 MEQ/15 ML UDCUP PO SCH ×2 (09:51→21:28)
[2020-04-01] MEDS: METOPROLOL TARTRATE 25 MG TABLET PO SCH (09:51)
[2020-04-01] MEDS: FUROSEMIDE 40 MG/4 ML VIAL IV SCH (09:51)
[2020-04-01] MEDS: methylPREDNISolone SOD SUC 40 MG/1 ML VIAL IV SCH ×2 (09:53→22:19)
[2020-04-01] MEDS: LORazepam 2 MG/1 ML VIAL IV PRN ×4 (11:25→22:58)
[2020-04-01] MEDS: SERTRALINE 25 MG TABLET PO SCH (21:27)
[2020-04-01] MEDS: PANTOPRAZOLE 40 MG VIAL IV SCH (21:28)
[2020-04-02] MEDS: INSULIN REGULAR 100 UNIT/ML SUBCUT SCH ×4 (00:54→18:11)
[2020-04-02 03:22] LABS: Calcium 9.1 MG/DL (8.5-10.1); Osmolality,Calculated 294.1 MOS/KG (273-304)
[2020-04-02] MEDS: POTASSIUM CHLORIDE 20 MEQ/15 ML UDCUP PER TUBE PRN (03:35)
[2020-04-02 03:42] LABS: ABG HCO3 32.7 MMOL/L (20-26); ABG Oxygen Saturation 93.2 % (95-100); ABG PCO2 51.1 MM HG (35-48); ABG PH 7.439 (7.35-7.45); ABG PO2 67.6 MM HG (80-95); ABG TCO2 31.5 MMOL/L (23-27); Allen Test Positive; Pt O2 Delivery Device Ventilator
[2020-04-02 03:52] LABS: Basophils % 0.1 % (0.0-0.8); Hematocrit 34.9 VOL% (35.7-47.0); Hemoglobin 10.2 GM/DL (12.0-16.0); Immature Granulocytes % 0.5 %; Immature Granulocytes Absolute 0.08 #; Lymphocytes # 0.5 10*3/uL (1.4-4.0); Lymphocytes % 2.8 % (21.3-54.2); Mean Corpuscular HGB Conc 29.2 GM/DL (32-36); Mean Corpuscular Volume 82.1 FL (87-102); Mean Platelet Volume 11.2 FL (9.6-12.0); Monocytes % 4.6 % (1.7-12.7); Platelet Count 342 T/CUMM (130-400); Red Blood Count 4.25 MC/CUMM (3.8-5.5); Red Cell Distribution Width 16.2 % (9.3-17.3); White Blood Count 16.3 T/CUMM (4-12)
[2020-04-02] MEDS: LORazepam 2 MG/1 ML VIAL IV PRN ×3 (04:50→10:56)
[2020-04-02 05:15] LABS: Hypochromasia 1+; Lymphocytes 1 % (20-55); Microcytosis 1+; Segmented Neutrophils 95 % (50-85); Total Cells Counted 100
[2020-04-02 05:16] LABS: Ovalocytes Slight; Platelet Estimate Normal
[2020-04-02] MEDS: ARFORMOTEROL 15 MCG/2 ML NEB RESP TX SCH ×2 (07:10→20:26)
[2020-04-02] MEDS: hydrALAZINE 25 MG TABLET PO SCH ×2 (08:33→21:34)
[2020-04-02] MEDS: ASPIRIN CHEW 81 MG TABLET PO SCH (08:33)
[2020-04-02] MEDS: APIXABAN 5 MG TABLET PO SCH ×2 (08:33→21:34)
[2020-04-02] MEDS: DICLOFENAC 1.3% PATCH 5/PACK TRANSDERM SCH ×2 (08:33→21:40)
[2020-04-02] MEDS: METOPROLOL TARTRATE 25 MG TABLET PO SCH (08:33)
[2020-04-02] MEDS: FUROSEMIDE 40 MG/4 ML VIAL IV SCH (08:34)
[2020-04-02] MEDS: POTASSIUM CHLORIDE 20 MEQ/15 ML UDCUP PO SCH ×2 (08:36→21:34)
[2020-04-02] MEDS ORDERED: AZITHROMYCIN INJ 250 MG in SODIUM CHLORIDE 0.9% 250 ML IV SCH (10:00)
[2020-04-02] MEDS: methylPREDNISolone SOD SUC 40 MG/1 ML VIAL IV SCH ×2 (12:34→21:34)
[2020-04-02] MEDS: PANTOPRAZOLE 40 MG VIAL IV SCH (21:34)
[2020-04-02] MEDS: SERTRALINE 25 MG TABLET PO SCH (21:34)
[2020-04-02 23:04] LABS: ABG Base Excess 6.8 MMOL/L (-2.5-2.5); ABG HCO3 30.5 MMOL/L (20-26); ABG Oxygen Saturation 94.3 % (95-100); ABG PCO2 62.2 MM HG (35-48); ABG PH 7.349 (7.35-7.45); ABG PO2 74.1 MM HG (80-95); ABG TCO2 31.3 MMOL/L (23-27); Allen Test Positive; Pt O2 Delivery Device BIPAP
[2020-04-03] MEDS: INSULIN REGULAR 100 UNIT/ML SUBCUT SCH ×5 (00:45→23:55)
[2020-04-03 04:31] LABS: ABG Base Excess 7.7 MMOL/L (-2.5-2.5); ABG HCO3 31.4 MMOL/L (20-26); ABG Oxygen Saturation 94.9 % (95-100); ABG PCO2 61.2 MM HG (35-48); ABG PH 7.364 (7.35-7.45); ABG PO2 74.8 MM HG (80-95); ABG TCO2 31.9 MMOL/L (23-27); Allen Test Positive; Pt O2 Delivery Device BIPAP
[2020-04-03 06:33] LABS: Osmolality,Calculated 299.1 MOS/KG (273-304)
[2020-04-03 07:11] LABS: Basophils % 0.2 % (0.0-0.8); Hematocrit 37.6 VOL% (35.7-47.0); Hemoglobin 10.7 GM/DL (12.0-16.0); Immature Granulocytes % 0.6 %; Immature Granulocytes Absolute 0.07 #; Lymphocytes # 0.5 10*3/uL (1.4-4.0); Lymphocytes % 3.7 % (21.3-54.2); Mean Corpuscular HGB Conc 28.5 GM/DL (32-36); Mean Corpuscular Volume 84.9 FL (87-102); Mean Platelet Volume 11.4 FL (9.6-12.0); Monocytes % 6.3 % (1.7-12.7); Neutrophils % 89.2 % (38.7-73.9); Platelet Count 337 T/CUMM (130-400); Red Blood Count 4.43 MC/CUMM (3.8-5.5); White Blood Count 12.5 T/CUMM (4-12)
[2020-04-03 07:30] LABS: Hypochromasia 1+; Lymphocytes 2 % (20-55); Microcytosis 1+; Polychromasia Slight; Segmented Neutrophils 90 % (50-85); Total Cells Counted 100
[2020-04-03] MEDS: ARFORMOTEROL 15 MCG/2 ML NEB RESP TX SCH ×2 (07:30→20:17)
[2020-04-03 07:31] LABS: Platelet Estimate Normal
[2020-04-03] MEDS: AZITHROMYCIN 250 MG TABLET PO SCH (09:37)
[2020-04-03] MEDS: hydrALAZINE 25 MG TABLET PO SCH ×2 (09:38→21:35)
[2020-04-03] MEDS: METOPROLOL TARTRATE 25 MG TABLET PO SCH (09:38)
[2020-04-03] MEDS: POTASSIUM CHLORIDE 20 MEQ/15 ML UDCUP PO SCH ×2 (09:38→21:35)
[2020-04-03] MEDS: APIXABAN 5 MG TABLET PO SCH ×2 (09:38→21:35)
[2020-04-03] MEDS: ASPIRIN CHEW 81 MG TABLET PO SCH (09:38)
[2020-04-03] MEDS: FUROSEMIDE 40 MG/4 ML VIAL IV SCH (09:39)
[2020-04-03] MEDS: methylPREDNISolone SOD SUC 40 MG/1 ML VIAL IV SCH ×2 (09:39→21:37)
[2020-04-03] MEDS: KETOROLAC 30 MG/1 ML VIAL IV PRN ×2 (10:23→21:49)
[2020-04-03] MEDS: DICLOFENAC 1.3% PATCH 5/PACK TRANSDERM SCH ×2 (12:53→21:35)
[2020-04-03] MEDS: SERTRALINE 25 MG TABLET PO SCH (21:35)
[2020-04-03] MEDS: PANTOPRAZOLE 40 MG VIAL IV SCH (21:35)
[2020-04-04] MEDS: KETOROLAC 30 MG/1 ML VIAL IV PRN ×2 (03:48→16:29)
[2020-04-04 04:28] LABS: Allen Test Positive
[2020-04-04 04:29] LABS: ABG Base Excess 8.4 MMOL/L (-2.5-2.5); ABG HCO3 35.2 MMOL/L (20-26); ABG Oxygen Saturation 94.9 % (95-100); ABG PCO2 61.1 MM HG (35-48); ABG PH 7.378 (7.35-7.45); ABG PO2 77.4 MM HG (80-95)
[2020-04-04 05:13] LABS: Calcium 8.9 MG/DL (8.5-10.1); Osmolality,Calculated 295.3 MOS/KG (273-304)
[2020-04-04 05:37] LABS: Basophils % 0.1 % (0.0-0.8); Eosinophils % 0.3 % (0.00-10.9); Hematocrit 34.6 VOL% (35.7-47.0); Immature Granulocytes % 0.4 %; Immature Granulocytes Absolute 0.05 #; Lymphocytes # 1.1 10*3/uL (1.4-4.0); Lymphocytes % 9.8 % (21.3-54.2); Mean Corpuscular HGB Conc 28.6 GM/DL (32-36); Mean Platelet Volume 11.4 FL (9.6-12.0); Monocytes % 12.5 % (1.7-12.7); Neutrophils % 76.9 % (38.7-73.9); Platelet Count 377 T/CUMM (130-400); Red Blood Count 4.12 MC/CUMM (3.8-5.5); Red Cell Distribution Width 16.1 % (9.3-17.3); White Blood Count 11.4 T/CUMM (4-12)
[2020-04-04 05:38] LABS: Hemoglobin 9.9 GM/DL (12.0-16.0)
[2020-04-04 05:42] LABS: Hypochromasia 1+; Microcytosis 1+; Platelet Estimate Adequate
[2020-04-04] MEDS: INSULIN REGULAR 100 UNIT/ML SUBCUT SCH ×3 (06:10→18:47)
[2020-04-04] MEDS: ARFORMOTEROL 15 MCG/2 ML NEB RESP TX SCH ×2 (07:26→19:12)
[2020-04-04] MEDS: hydrALAZINE 25 MG TABLET PO SCH ×2 (09:26→21:00)
[2020-04-04] MEDS: ASPIRIN CHEW 81 MG TABLET PO SCH (09:27)
[2020-04-04] MEDS: METOPROLOL TARTRATE 25 MG TABLET PO SCH (09:28)
[2020-04-04] MEDS: POTASSIUM CHLORIDE 20 MEQ/15 ML UDCUP PO SCH ×2 (09:28→21:00)
[2020-04-04] MEDS: APIXABAN 5 MG TABLET PO SCH ×2 (09:28→21:00)
[2020-04-04] MEDS: FUROSEMIDE 40 MG/4 ML VIAL IV SCH (09:28)
[2020-04-04] MEDS: PANTOPRAZOLE 40 MG TABLET PO SCH (09:29)
[2020-04-04] MEDS: AZITHROMYCIN 250 MG TABLET PO SCH (09:29)
[2020-04-04] MEDS: DICLOFENAC 1.3% PATCH 5/PACK TRANSDERM SCH (09:44)
[2020-04-04] MEDS: methylPREDNISolone SOD SUC 40 MG/1 ML VIAL IV SCH ×2 (10:41→22:30)
[2020-04-04] MEDS: SERTRALINE 25 MG TABLET PO SCH (21:00)
[2020-04-05] MEDS: DICLOFENAC 1.3% PATCH 5/PACK TRANSDERM SCH ×3 (02:10→21:09)
[2020-04-05 04:52] LABS: ABG Base Excess 7.3 MMOL/L (-2.5-2.5); ABG Oxygen Saturation 89.8 % (95-100); ABG PCO2 55.7 MM HG (35-48); ABG PH 7.391 (7.35-7.45); ABG PO2 61.2 MM HG (80-95); ABG TCO2 30.8 MMOL/L (23-27); Allen Test Positive
[2020-04-05 05:54] LABS: Calcium 8.5 MG/DL (8.5-10.1)
[2020-04-05 06:20] LABS: Basophils % 0.1 % (0.0-0.8); Hematocrit 34.8 VOL% (35.7-47.0); Immature Granulocytes % 0.7 %; Immature Granulocytes Absolute 0.05 #; Lymphocytes # 0.5 10*3/uL (1.4-4.0); Lymphocytes % 6.7 % (21.3-54.2); Mean Corpuscular HGB Conc 28.7 GM/DL (32-36); Mean Corpuscular Volume 84.1 FL (87-102); Mean Platelet Volume 10.7 FL (9.6-12.0); Neutrophils % 87.5 % (38.7-73.9); Platelet Count 373 T/CUMM (130-400); Red Blood Count 4.14 MC/CUMM (3.8-5.5); White Blood Count 7.1 T/CUMM (4-12)
[2020-04-05 06:37] LABS: Hypochromasia 1+; Microcytosis Slight; Platelet Estimate Adequate
[2020-04-05] MEDS: ARFORMOTEROL 15 MCG/2 ML NEB RESP TX SCH ×2 (07:32→18:59)
[2020-04-05] MEDS: INSULIN REGULAR 100 UNIT/ML SUBCUT SCH ×5 (08:55→23:52)
[2020-04-05] MEDS ORDERED: FUROSEMIDE 20 MG/2 ML VIAL ONE (09:14)
[2020-04-05] MEDS: methylPREDNISolone SOD SUC 40 MG/1 ML VIAL IV SCH ×2 (10:22→21:30)
[2020-04-05] MEDS: FUROSEMIDE 40 MG/4 ML VIAL IV SCH (10:22)
[2020-04-05] MEDS: POTASSIUM CHLORIDE 20 MEQ/15 ML UDCUP PO SCH ×2 (10:22→20:44)
[2020-04-05] MEDS: AZITHROMYCIN 250 MG TABLET PO SCH (10:23)
[2020-04-05] MEDS: hydrALAZINE 25 MG TABLET PO SCH ×2 (10:23→20:45)
[2020-04-05] MEDS: PANTOPRAZOLE 40 MG TABLET PO SCH (10:23)
[2020-04-05] MEDS: METOPROLOL TARTRATE 25 MG TABLET PO SCH (10:23)
[2020-04-05] MEDS: ASPIRIN CHEW 81 MG TABLET PO SCH (10:23)
[2020-04-05] MEDS: APIXABAN 5 MG TABLET PO SCH ×2 (10:23→20:44)
[2020-04-05] MEDS: SERTRALINE 25 MG TABLET PO SCH (20:44)
[2020-04-06] MEDS: INSULIN REGULAR 100 UNIT/ML SUBCUT SCH ×4 (05:27→23:47)
[2020-04-06] MEDS: ARFORMOTEROL 15 MCG/2 ML NEB RESP TX SCH ×2 (07:18→19:26)
[2020-04-06] MEDS: POTASSIUM CHLORIDE 20 MEQ/15 ML UDCUP PO SCH ×2 (08:52→20:17)
[2020-04-06] MEDS: DICLOFENAC 1.3% PATCH 5/PACK TRANSDERM SCH ×2 (08:53→20:43)
[2020-04-06] MEDS: FUROSEMIDE 40 MG/4 ML VIAL IV SCH (08:53)
[2020-04-06] MEDS: AZITHROMYCIN 250 MG TABLET PO SCH (08:53)
[2020-04-06] MEDS: hydrALAZINE 25 MG TABLET PO SCH ×2 (08:53→20:19)
[2020-04-06] MEDS: METOPROLOL TARTRATE 25 MG TABLET PO SCH (08:53)
[2020-04-06] MEDS: ASPIRIN CHEW 81 MG TABLET PO SCH (08:54)
[2020-04-06] MEDS: APIXABAN 5 MG TABLET PO SCH ×2 (08:54→20:19)
[2020-04-06] MEDS: PANTOPRAZOLE 40 MG TABLET PO SCH (08:54)
[2020-04-06] MEDS: methylPREDNISolone SOD SUC 40 MG/1 ML VIAL IV SCH ×2 (10:19→22:08)
[2020-04-06] MEDS: SERTRALINE 25 MG TABLET PO SCH (20:19)
[2020-04-07] MEDS: INSULIN REGULAR 100 UNIT/ML SUBCUT SCH ×3 (06:21→17:56)
[2020-04-07] MEDS: ARFORMOTEROL 15 MCG/2 ML NEB RESP TX SCH ×2 (07:29→20:25)
[2020-04-07] MEDS: FUROSEMIDE 40 MG/4 ML VIAL IV SCH (08:51)
[2020-04-07] MEDS: POTASSIUM CHLORIDE 20 MEQ/15 ML UDCUP PO SCH ×2 (08:57→20:47)
[2020-04-07] MEDS: DICLOFENAC 1.3% PATCH 5/PACK TRANSDERM SCH ×2 (08:58→20:49)
[2020-04-07] MEDS: hydrALAZINE 25 MG TABLET PO SCH ×2 (09:01→20:49)
[2020-04-07] MEDS: PANTOPRAZOLE 40 MG TABLET PO SCH (09:02)
[2020-04-07] MEDS: ASPIRIN CHEW 81 MG TABLET PO SCH (09:02)
[2020-04-07] MEDS: METOPROLOL TARTRATE 25 MG TABLET PO SCH (09:02)
[2020-04-07] MEDS: APIXABAN 5 MG TABLET PO SCH ×2 (09:02→20:49)
[2020-04-07] MEDS: methylPREDNISolone SOD SUC 40 MG/1 ML VIAL IV SCH ×2 (10:21→21:42)
[2020-04-07] MEDS: SERTRALINE 25 MG TABLET PO SCH (20:48)
[2020-04-08] MEDS: INSULIN REGULAR 100 UNIT/ML SUBCUT SCH ×3 (00:21→20:57)
[2020-04-08] MEDS: ARFORMOTEROL 15 MCG/2 ML NEB RESP TX SCH ×2 (07:25→20:31)
[2020-04-08] MEDS: POTASSIUM CHLORIDE 20 MEQ/15 ML UDCUP PO SCH ×2 (08:48→20:53)
[2020-04-08] MEDS: FUROSEMIDE 40 MG/4 ML VIAL IV SCH (08:49)
[2020-04-08] MEDS: PANTOPRAZOLE 40 MG TABLET PO SCH (08:51)
[2020-04-08] MEDS: METOPROLOL TARTRATE 25 MG TABLET PO SCH (08:51)
[2020-04-08] MEDS: APIXABAN 5 MG TABLET PO SCH ×2 (08:51→20:53)
[2020-04-08] MEDS: hydrALAZINE 25 MG TABLET PO SCH ×2 (08:51→20:53)
[2020-04-08] MEDS: ASPIRIN CHEW 81 MG TABLET PO SCH (08:51)
[2020-04-08] MEDS: DICLOFENAC 1.3% PATCH 5/PACK TRANSDERM SCH ×2 (09:52→20:53)
[2020-04-08] MEDS: methylPREDNISolone SOD SUC 40 MG/1 ML VIAL IV SCH ×2 (09:53→21:54)
[2020-04-08] MEDS ORDERED: guaiFENesin 200 MG/10 ML UDCUP PO PRN (17:34)
[2020-04-08] MEDS: SERTRALINE 25 MG TABLET PO SCH (20:53)
[2020-04-09] MEDS: ARFORMOTEROL 15 MCG/2 ML NEB RESP TX SCH ×2 (07:48→19:42)
[2020-04-09] MEDS: FUROSEMIDE 40 MG/4 ML VIAL IV SCH (09:03)
[2020-04-09] MEDS: POTASSIUM CHLORIDE 20 MEQ/15 ML UDCUP PO SCH ×2 (09:04→20:57)
[2020-04-09] MEDS: PANTOPRAZOLE 40 MG TABLET PO SCH (09:05)
[2020-04-09] MEDS: APIXABAN 5 MG TABLET PO SCH ×2 (09:05→20:53)
[2020-04-09] MEDS: hydrALAZINE 25 MG TABLET PO SCH ×2 (09:05→20:53)
[2020-04-09] MEDS: ASPIRIN CHEW 81 MG TABLET PO SCH (09:05)
[2020-04-09] MEDS: METOPROLOL TARTRATE 25 MG TABLET PO SCH (09:05)
[2020-04-09] MEDS: INSULIN REGULAR 100 UNIT/ML SUBCUT SCH ×2 (09:06→21:13)
[2020-04-09] MEDS: DICLOFENAC 1.3% PATCH 5/PACK TRANSDERM SCH ×2 (09:27→20:53)
[2020-04-09] MEDS: methylPREDNISolone SOD SUC 40 MG/1 ML VIAL IV SCH ×2 (09:30→21:54)
[2020-04-09] MEDS: SERTRALINE 25 MG TABLET PO SCH (20:53)
[2020-04-10] MEDS: DICLOFENAC 1.3% PATCH 5/PACK TRANSDERM SCH (09:27)
[2020-04-10] MEDS: APIXABAN 5 MG TABLET PO SCH (09:28)
[2020-04-10] MEDS: ASPIRIN CHEW 81 MG TABLET PO SCH (09:28)
[2020-04-10] MEDS: METOPROLOL TARTRATE 25 MG TABLET PO SCH (09:28)
[2020-04-10] MEDS: hydrALAZINE 25 MG TABLET PO SCH (09:28)
[2020-04-10] MEDS: POTASSIUM CHLORIDE 20 MEQ/15 ML UDCUP PO SCH (09:28)
[2020-04-10] MEDS: PANTOPRAZOLE 40 MG TABLET PO SCH (09:28)
[2020-04-10] MEDS: INSULIN REGULAR 100 UNIT/ML SUBCUT SCH (09:28)
[2020-04-10] MEDS: FUROSEMIDE 40 MG/4 ML VIAL IV SCH (09:28)
[2020-04-10] MEDS: methylPREDNISolone SOD SUC 40 MG/1 ML VIAL IV SCH (09:29)
[2020-04-10 12:44] VITALS: BP 117/77
== END 2020-04-10 16:37 | disposition swing bed (61) | DRG 207 ==
LOC: EDBD → EDUNIT# → N.ED 13:07 → SUATTDRO 20:33 → N.EDINP 20:33 → N.ICU 21:32 → N.4E 04-04 12:55
PROVIDERS: ADMIT Family Medicine; ATTEND Internal Medicine

== ENCOUNTER 2021-09-18 17:44 | Inpatient (IN) ==
[2021-09-18 18:53] LABS: ABG Base Excess 10.1 MMOL/L (-2.5-2.5); ABG HCO3 33.8 MMOL/L (20-26); ABG PO2 90.9 MM HG (80-95); ABG TCO2 37.2 MMOL/L (23-27)
[2021-09-18 19:03] LABS: Basophils % 0.2 % (0.0-0.8); Hemoglobin 11.3 GM/DL (12.0-16.0); Red Blood Count 4.11 MC/CUMM (3.8-5.5); Red Cell Distribution Width 13.7 % (9.3-17.3)
[2021-09-18 19:07] LABS: ABG PCO2 90.6 MM HG (35-48)
[2021-09-18 19:12] LABS: INR 1.3
[2021-09-18 19:23] LABS: Alanine Aminotransferase 348 U/L (13-56); Albumin 2.6 G/DL (3.4-5.0); Alkaline Phosphatase 102 U/L (45-117); Aspartate Amino Transferase 512 U/L (0-37); Blood Urea Nitrogen 67 MG/DL (7-18); CKMB % 10.3 %; Calcium 9.9 MG/DL (8.5-10.1); Carbon Dioxide 38 MMOL/L (21-32); Estimated Glom Filtration Rate 43 ML/MIN; Glucose 139 MG/DL (74-106); Hematocrit 39.3 VOL% (35.7-47.0); Immature Granulocytes % 0.7 %; Immature Granulocytes Absolute 0.12 #; Lymphocytes # 0.9 10*3/uL (1.4-4.0); Lymphocytes % 5.2 % (21.3-54.2); Mean Corpuscular HGB Conc 28.8 GM/DL (32-36); Mean Corpuscular Volume 95.6 FL (87-102); Mean Platelet Volume 10.7 FL (9.6-12.0); Monocytes % 10.9 % (1.7-12.7); Osmolality,Calculated 297.5 MOS/KG (273-304); Platelet Count 296 T/CUMM (130-400); Potassium 4.7 MMOL/L (3.5-5.1); Sodium 139 MMOL/L (136-145); Total Protein 7.4 G/DL (6.4-8.2); White Blood Count 16.8 T/CUMM (4-12)
[2021-09-18 19:30] LABS: Prolactin 13.1 ng/mL (2.8-29.2)
[2021-09-18] MEDS ORDERED: FUROSEMIDE 20 MG/2 ML VIAL IV STA (19:50)
[2021-09-18] MEDS ORDERED: FUROSEMIDE 40 MG/4 ML VIAL IV STA (19:52)
[2021-09-18] MEDS ORDERED: ONDANSETRON 4 MG/2 ML VIAL IV PRN (20:26)
[2021-09-18] MEDS ORDERED: DEXTROSE 50% 25 GM/50 ML VIAL IV PRN (20:26)
[2021-09-18] MEDS ORDERED: GLUCAGON 1 MG VIAL IM PRN ×2 (20:26)
[2021-09-18 20:32] LABS: Bacteria,Urine Many /HPF (Few); Bilirubin,Urine Negative (Negative); Blood, Urine Large mg/dL (Negative); Glucose,Urine (UA) Negative (Negative); Ketones,Urine Negative (Negative); Nitrite,Urine Negative (Negative); Protein,Urine 100 MG/DL; RBC,Urine 1537 /HPF (0-4); Urine Appearance CLOUDY (Clear); Urine Color Red (Yellow); Urine Specific Gravity 1.014 (1.001-1.035); Urine Urobilinogen < 2.0 EU/DL (0.2-1.0)
[2021-09-18] MEDS ORDERED: CYCLOBENZAPRINE 10 MG TABLET PO PRN (20:34)
[2021-09-18 20:35] LABS: Barbiturates Screen,Urine Negative (Negative); Benzodiazepines Screen,Urine Negative (Negative); Cannabinoid Screen,Urine Negative (Negative); Opiate Screen,Urine Negative (Negative); Phencyclidine Screen,Urine Negative (Negative)
[2021-09-18 20:36] LABS: ABG Base Excess 10.4 MMOL/L (-2.5-2.5); ABG Oxygen Saturation 91.2 % (95-100); ABG PH 7.284 (7.35-7.45); ABG PO2 67.8 MM HG (80-95); ABG TCO2 37.3 MMOL/L (23-27)
[2021-09-18] MEDS ORDERED: LEVOFLOXACIN INJ 500 MG/100 ML PREMIX IV STA (20:36)
[2021-09-18] MEDS ORDERED: MAGNESIUM SULF RIDER 2 GM/50 ML PREMIX IV PRN (20:37)
[2021-09-18] MEDS ORDERED: MAGNESIUM SULF RIDER 4 GM/100 ML PREMIX IV PRN (20:37)
[2021-09-18] MEDS ORDERED: DEXTROSE 50% 25 GM/50 ML SYRINGE IV PRN (20:42)
[2021-09-18 20:44] LABS: ABG PCO2 86.4 MM HG (35-48)
[2021-09-18] MEDS ORDERED: ENOXAPARIN 100 MG/ML SYRINGE SUBCUT SCH (21:00)
[2021-09-19] MEDS: hydrALAZINE 25 MG TABLET PO SCH ×3 (02:16→22:00)
[2021-09-19] MEDS: acetaZOLAMIDE 250 MG TABLET PO SCH ×2 (02:16→13:17)
[2021-09-19] MEDS: INSULIN REGULAR 100 UNIT/ML SUBCUT SCH ×5 (02:16→22:00)
[2021-09-19] MEDS: POTASSIUM CHLORIDE 20 MEQ TABLET PO SCH ×4 (02:17→22:00)
[2021-09-19] MEDS: PREGABALIN 50 MG CAPSULE PO SCH ×3 (02:17→22:01)
[2021-09-19 06:56] LABS: Basophils # 0.1 10*3/uL (0.0-0.2); Basophils % 0.4 % (0.0-0.8); Eosinophils % 0.1 % (0.00-10.9); Hematocrit 39.6 VOL% (35.7-47.0); Hemoglobin 11.3 GM/DL (12.0-16.0); Immature Granulocytes % 0.9 %; Immature Granulocytes Absolute 0.16 #; Lymphocytes # 0.9 10*3/uL (1.4-4.0); Lymphocytes % 5.3 % (21.3-54.2); Mean Corpuscular HGB Conc 28.5 GM/DL (32-36); Mean Platelet Volume 10.9 FL (9.6-12.0); Monocytes % 12.4 % (1.7-12.7); Neutrophils % 80.9 % (38.7-73.9); Platelet Count 299 T/CUMM (130-400); Red Cell Distribution Width 13.4 % (9.3-17.3); White Blood Count 16.9 T/CUMM (4-12)
[2021-09-19 07:19] LABS: Albumin 2.5 G/DL (3.4-5.0); Bilirubin,Total 0.4 MG/DL (0.20-1.00); Calcium 9.6 MG/DL (8.5-10.1); Osmolality,Calculated 307.8 MOS/KG (273-304); Potassium 4.7 MMOL/L (3.5-5.1); Risk Ratio 3.12; Total Protein 7.1 G/DL (6.4-8.2); VLDL Cholesterol 17.4 MG/DL
[2021-09-19] MEDS ORDERED: FUROSEMIDE 40 MG/4 ML VIAL IV SCH ×2 (08:00→20:00)
[2021-09-19] MEDS ORDERED: METOPROLOL TARTRATE 25 MG TABLET PO SCH (09:00)
[2021-09-19] MEDS ORDERED: PANTOPRAZOLE 40 MG TABLET PO SCH ×2 (09:00)
[2021-09-19] MEDS ORDERED: APIXABAN 5 MG TABLET PO SCH (09:00)
[2021-09-19] MEDS ORDERED: MULTIVITAMIN (CENTRUM) TABLET ONE (09:57)
[2021-09-19] MEDS ORDERED: APIXABAN 5 MG TABLET ONE (09:58)
[2021-09-19] MEDS: NON-FORMULARY MEDICATION (Multivitamin With Iron Tablet) PO SCH (10:03)
[2021-09-19] MEDS ORDERED: LACTULOSE 20 GM/30 ML UDCUP PO ONE (10:54)
[2021-09-19] MEDS: ASPIRIN EC 81 MG TABLET PO SCH (11:25)
[2021-09-19] MEDS ORDERED: cefTRIAXone 1,000 MG in SODIUM CHLORIDE 0.9% 100 ML IV SCH (16:30)
[2021-09-19 16:54] LABS: Albumin 2.4 G/DL (3.4-5.0); Bilirubin,Total 0.4 MG/DL (0.20-1.00); Calcium 9.5 MG/DL (8.5-10.1); Osmolality,Calculated 302.4 MOS/KG (273-304); Potassium 4.4 MMOL/L (3.5-5.1); Total Protein 7.2 G/DL (6.4-8.2)
[2021-09-19] MEDS: cefTRIAXone 2,000 MG in SODIUM CHLORIDE 0.9% 100 ML IV SCH (17:51)
[2021-09-19 18:00] LABS: Basophils % 0.3 % (0.0-0.8); Eosinophils % 0.1 % (0.00-10.9); Hematocrit 42.7 VOL% (35.7-47.0); Hemoglobin 11.8 GM/DL (12.0-16.0); Immature Granulocytes % 1.1 %; Immature Granulocytes Absolute 0.16 #; Lymphocytes # 0.8 10*3/uL (1.4-4.0); Lymphocytes % 5.5 % (21.3-54.2); Mean Corpuscular HGB Conc 27.6 GM/DL (32-36); Mean Corpuscular Volume 100.2 FL (87-102); Mean Platelet Volume 11.1 FL (9.6-12.0); Monocytes % 11.5 % (1.7-12.7); NRBC # 0.02 10*3/uL; Neutrophils % 81.5 % (38.7-73.9); Platelet Count 325 T/CUMM (130-400); Red Blood Count 4.26 MC/CUMM (3.8-5.5); Red Cell Distribution Width 13.4 % (9.3-17.3); White Blood Count 15.2 T/CUMM (4-12)
[2021-09-19 18:03] LABS: Anisocytosis 1+; Atypical Lymphocytes Few; Band Neutrophils 4 % (0-10); Hypochromasia 1+; Lymphocytes 3 % (20-55); Macrocytosis 1+; Platelet Estimate Normal; Polychromasia Slight; Segmented Neutrophils 84 % (50-85); Total Cells Counted 100
[2021-09-19] MEDS: ALBUTEROL/IPRATROPIUM 3 ML NEB RESP TX SCH ×2 (19:50→23:50)
[2021-09-19 20:04] LABS: ABG Base Excess 10.3 MMOL/L (-2.5-2.5); ABG HCO3 42.2 MMOL/L (20-26); ABG Oxygen Saturation 98.8 % (95-100); ABG TCO2 45.6 MMOL/L (23-27)
[2021-09-19 20:09] LABS: ABG PCO2 111.2 MM HG (35-48); ABG PH 7.197 (7.35-7.45)
[2021-09-19] MEDS ORDERED: LEVOFLOXACIN INJ 500 MG/100 ML PREMIX IV SCH (21:00)
[2021-09-19] MEDS ORDERED: ATORVASTATIN 40 MG TABLET PO SCH (21:00)
[2021-09-19] MEDS: METOPROLOL TARTRATE 25 MG TABLET PO SCH (22:00)
[2021-09-19] MEDS: APIXABAN 5 MG TABLET PO SCH (22:01)
[2021-09-19 22:40] LABS: ABG Base Excess 8.9 MMOL/L (-2.5-2.5); ABG HCO3 32.7 MMOL/L (20-26); ABG Oxygen Saturation 99.1 % (95-100); ABG TCO2 38.1 MMOL/L (23-27)
[2021-09-19 22:48] LABS: ABG PH 7.209 (7.35-7.45)
[2021-09-20] MEDS: ALBUTEROL/IPRATROPIUM 3 ML NEB RESP TX SCH ×6 (03:39→23:10)
[2021-09-20 03:56] LABS: ABG Base Excess 10.1 MMOL/L (-2.5-2.5); ABG HCO3 40.8 MMOL/L (20-26); ABG PH 7.236 (7.35-7.45); ABG PO2 181.9 MM HG (80-95); ABG TCO2 43.8 MMOL/L (23-27)
[2021-09-20 03:58] LABS: ABG PCO2 98.3 MM HG (35-48)
[2021-09-20 05:57] LABS: Calcium 9.1 MG/DL (8.5-10.1); Osmolality,Calculated 306.1 MOS/KG (273-304); Potassium 4.1 MMOL/L (3.5-5.1)
[2021-09-20 06:33] LABS: Basophils % 0.3 % (0.0-0.8); Eosinophils % 0.1 % (0.00-10.9); Hematocrit 38.5 VOL% (35.7-47.0); Immature Granulocytes Absolute 0.12 #; Lymphocytes # 0.7 10*3/uL (1.4-4.0); Lymphocytes % 5.9 % (21.3-54.2); Mean Corpuscular HGB Conc 29.1 GM/DL (32-36); Mean Corpuscular Volume 98.2 FL (87-102); Monocytes % 12.3 % (1.7-12.7); NRBC # 0.02 10*3/uL; Neutrophils % 80.4 % (38.7-73.9); Platelet Count 308 T/CUMM (130-400); Red Blood Count 3.92 MC/CUMM (3.8-5.5); Red Cell Distribution Width 13.2 % (9.3-17.3); White Blood Count 11.5 T/CUMM (4-12)
[2021-09-20 06:34] LABS: Hemoglobin 11.2 GM/DL (12.0-16.0)
[2021-09-20 08:46] LABS: ABG Base Excess 8.6 MMOL/L (-2.5-2.5); ABG HCO3 32.4 MMOL/L (20-26); ABG Oxygen Saturation 99.1 % (95-100); ABG PH 7.227 (7.35-7.45); Allen Test Positive; Pt O2 Delivery Device BIPAP
[2021-09-20] MEDS: POTASSIUM CHLORIDE 20 MEQ TABLET PO SCH ×3 (10:15→21:11)
[2021-09-20] MEDS: APIXABAN 5 MG TABLET PO SCH ×2 (10:15→20:50)
[2021-09-20] MEDS: METOPROLOL TARTRATE 25 MG TABLET PO SCH (10:15)
[2021-09-20] MEDS: NON-FORMULARY MEDICATION (Multivitamin With Iron Tablet) PO SCH (10:15)
[2021-09-20] MEDS: hydrALAZINE 25 MG TABLET PO SCH ×2 (10:15→20:49)
[2021-09-20] MEDS: PREGABALIN 50 MG CAPSULE PO SCH ×2 (10:15→21:11)
[2021-09-20] MEDS: ASPIRIN EC 81 MG TABLET PO SCH (10:15)
[2021-09-20] MEDS ORDERED: LACTULOSE 20 GM/30 ML UDCUP PO PRN (10:42)
[2021-09-20 10:54] LABS: ABG Base Excess 9.6 MMOL/L (-2.5-2.5); ABG HCO3 33.3 MMOL/L (20-26); ABG Oxygen Saturation 99.1 % (95-100); ABG PH 7.259 (7.35-7.45); Allen Test Positive; Pt O2 Delivery Device BIPAP
[2021-09-20 11:02] LABS: ABG PCO2 90.2 MM HG (35-48)
[2021-09-20 11:49] LABS: Bilirubin,Urine Negative (Negative); Blood, Urine Large mg/dL (Negative); Glucose,Urine (UA) Negative (Negative); Ketones,Urine Negative (Negative); Nitrite,Urine Negative (Negative); Protein,Urine 100 MG/DL; RBC,Urine 3545 /HPF (0-4); Urine Appearance CLOUDY (Clear); Urine Color Red (Yellow); Urine Specific Gravity 1.014 (1.001-1.035); Urine Urobilinogen < 2.0 EU/DL (0.2-1.0)
[2021-09-20] MEDS: INSULIN REGULAR 100 UNIT/ML SUBCUT SCH ×4 (12:05→21:16)
[2021-09-20] MEDS: cefTRIAXone 2,000 MG in SODIUM CHLORIDE 0.9% 100 ML IV SCH (16:25)
[2021-09-20] MEDS: FUROSEMIDE 40 MG/4 ML VIAL IV SCH (16:25)
[2021-09-20 17:35] LABS: ABG Base Excess 9.4 MMOL/L (-2.5-2.5); ABG HCO3 33.2 MMOL/L (20-26); ABG Oxygen Saturation 98.8 % (95-100); ABG PH 7.248 (7.35-7.45); ABG TCO2 37.2 MMOL/L (23-27); Pt O2 Delivery Device BIPAP
[2021-09-20 17:41] LABS: ABG PCO2 93.4 MM HG (35-48)
[2021-09-20] MEDS: METOPROLOL TARTRATE 50 MG TABLET PO SCH (20:49)
[2021-09-21] MEDS: ALBUTEROL/IPRATROPIUM 3 ML NEB RESP TX SCH ×6 (03:40→23:15)
[2021-09-21 03:59] LABS: ABG Base Excess 11.7 MMOL/L (-2.5-2.5); ABG HCO3 35.5 MMOL/L (20-26); ABG Oxygen Saturation 97.2 % (95-100); ABG PH 7.318 (7.35-7.45); ABG PO2 93.7 MM HG (80-95); ABG TCO2 37.7 MMOL/L (23-27)
[2021-09-21 04:03] LABS: ABG PCO2 80.4 MM HG (35-48)
[2021-09-21 06:45] LABS: Basophils % 0.3 % (0.0-0.8); Eosinophils # 0.1 10*3/uL (0.0-0.87); Eosinophils % 0.7 % (0.00-10.9); Hematocrit 39.7 VOL% (35.7-47.0); Hemoglobin 11.9 GM/DL (12.0-16.0); Immature Granulocytes % 0.9 %; Immature Granulocytes Absolute 0.11 #; Lymphocytes # 1.2 10*3/uL (1.4-4.0); Lymphocytes % 10.1 % (21.3-54.2); Mean Corpuscular Volume 93.4 FL (87-102); Monocytes % 12.5 % (1.7-12.7); Neutrophils % 75.5 % (38.7-73.9); Platelet Count 235 T/CUMM (130-400); Red Blood Count 4.25 MC/CUMM (3.8-5.5); Red Cell Distribution Width 13.2 % (9.3-17.3); White Blood Count 11.8 T/CUMM (4-12)
[2021-09-21] MEDS: FUROSEMIDE 40 MG/4 ML VIAL IV SCH ×2 (06:57→08:47)
[2021-09-21 07:02] LABS: Calcium 9.4 MG/DL (8.5-10.1); Osmolality,Calculated 299.4 MOS/KG (273-304)
[2021-09-21] MEDS: INSULIN REGULAR 100 UNIT/ML SUBCUT SCH ×4 (08:46→20:11)
[2021-09-21] MEDS: hydrALAZINE 25 MG TABLET PO SCH (08:48)
[2021-09-21] MEDS: PREGABALIN 50 MG CAPSULE PO SCH ×2 (08:48→20:59)
[2021-09-21] MEDS: APIXABAN 5 MG TABLET PO SCH ×2 (08:48→20:59)
[2021-09-21] MEDS: ACETAMINOPHEN 325 MG TABLET PO PRN (08:48)
[2021-09-21] MEDS: POTASSIUM CHLORIDE 20 MEQ TABLET PO SCH ×3 (08:48→20:59)
[2021-09-21] MEDS: METOPROLOL TARTRATE 50 MG TABLET PO SCH ×2 (08:48→20:59)
[2021-09-21] MEDS: ASPIRIN EC 81 MG TABLET PO SCH (08:48)
[2021-09-21] MEDS: NON-FORMULARY MEDICATION (Multivitamin With Iron Tablet) PO SCH (09:02)
[2021-09-21 09:53] LABS: Albumin 2.5 G/DL (3.4-5.0); Bilirubin,Direct 0.1 MG/DL (0.0-0.20); Bilirubin,Indirect 0.3 MG/DL (0.0-1.0); Bilirubin,Total 0.4 MG/DL (0.20-1.00); Total Protein 7.3 G/DL (6.4-8.2)
[2021-09-21] MEDS: cefTRIAXone 2,000 MG in SODIUM CHLORIDE 0.9% 100 ML IV SCH (16:42)
[2021-09-22] MEDS: ALBUTEROL/IPRATROPIUM 3 ML NEB RESP TX SCH ×6 (03:13→23:22)
[2021-09-22 08:36] LABS: Basophils # 0.1 10*3/uL (0.0-0.2); Basophils % 0.5 % (0.0-0.8); Eosinophils # 0.2 10*3/uL (0.0-0.87); Eosinophils % 1.9 % (0.00-10.9); Hematocrit 36.4 VOL% (35.7-47.0); Hemoglobin 10.9 GM/DL (12.0-16.0); Immature Granulocytes % 0.7 %; Immature Granulocytes Absolute 0.08 #; Lymphocytes # 1.7 10*3/uL (1.4-4.0); Lymphocytes % 15.1 % (21.3-54.2); Mean Corpuscular HGB Conc 29.9 GM/DL (32-36); Mean Corpuscular Volume 92.4 FL (87-102); Mean Platelet Volume 10.3 FL (9.6-12.0); Monocytes % 15.7 % (1.7-12.7); Neutrophils % 66.1 % (38.7-73.9); Platelet Count 389 T/CUMM (130-400); Red Blood Count 3.94 MC/CUMM (3.8-5.5); Red Cell Distribution Width 13.2 % (9.3-17.3)
[2021-09-22 08:40] LABS: ABG HCO3 36.6 MMOL/L (20-26); ABG PCO2 57.1 MM HG (35-48); ABG PH 7.447 (7.35-7.45); ABG PO2 52.9 MM HG (80-95); ABG TCO2 35.7 MMOL/L (23-27)
[2021-09-22] MEDS: INSULIN REGULAR 100 UNIT/ML SUBCUT SCH ×4 (08:58→20:15)
[2021-09-22 09:00] LABS: Calcium 9.7 MG/DL (8.5-10.1); Potassium 3.5 MMOL/L (3.5-5.1)
[2021-09-22] MEDS: APIXABAN 5 MG TABLET PO SCH ×2 (09:21→21:13)
[2021-09-22] MEDS: POTASSIUM CHLORIDE 20 MEQ TABLET PO SCH ×3 (09:21→21:14)
[2021-09-22] MEDS: ASPIRIN EC 81 MG TABLET PO SCH (09:21)
[2021-09-22] MEDS: METOPROLOL TARTRATE 50 MG TABLET PO SCH ×2 (09:21→21:11)
[2021-09-22] MEDS: PREGABALIN 25 MG CAPSULE PO SCH ×2 (09:21→21:13)
[2021-09-22] MEDS: NON-FORMULARY MEDICATION (Multivitamin With Iron Tablet) PO SCH (09:21)
[2021-09-22 09:26] LABS: Lymphocytes 11 % (20-55); Segmented Neutrophils 76 % (50-85); Total Cells Counted 100
[2021-09-22 09:27] LABS: Hypochromasia 2+; Platelet Estimate Normal; Polychromasia Slight
[2021-09-22] MEDS: FUROSEMIDE 40 MG/4 ML VIAL IV SCH (09:28)
[2021-09-22] MEDS ORDERED: VANCOMYCIN INJ 1,000 MG in SODIUM CHLORIDE 0.9% 250 ML IV ONE (14:38)
[2021-09-22] MEDS: VANCOMYCIN INJ 1,750 MG in SODIUM CHLORIDE 0.9% 500 ML IV SCH (16:59)
[2021-09-23] MEDS: ALBUTEROL/IPRATROPIUM 3 ML NEB RESP TX SCH ×5 (03:09→22:48)
[2021-09-23] MEDS: ASPIRIN EC 81 MG TABLET PO SCH (13:51)
[2021-09-23] MEDS: INSULIN REGULAR 100 UNIT/ML SUBCUT SCH ×3 (13:51→21:22)
[2021-09-23] MEDS: APIXABAN 5 MG TABLET PO SCH ×2 (13:51→21:22)
[2021-09-23] MEDS: PREGABALIN 25 MG CAPSULE PO SCH ×2 (13:52→21:22)
[2021-09-23] MEDS: POTASSIUM CHLORIDE 20 MEQ TABLET PO SCH ×3 (13:52→21:22)
[2021-09-23] MEDS: FUROSEMIDE 40 MG/4 ML VIAL IV SCH (13:52)
[2021-09-23] MEDS: METOPROLOL TARTRATE 50 MG TABLET PO SCH ×2 (13:52→21:22)
[2021-09-23] MEDS: NON-FORMULARY MEDICATION (Multivitamin With Iron Tablet) PO SCH (13:52)
[2021-09-23] MEDS: VANCOMYCIN INJ 1,750 MG in SODIUM CHLORIDE 0.9% 500 ML IV SCH (16:35)
[2021-09-24] MEDS: ALBUTEROL/IPRATROPIUM 3 ML NEB RESP TX SCH ×6 (03:19→23:40)
[2021-09-24 04:38] LABS: ABG Base Excess 9.9 MMOL/L (-2.5-2.5); ABG HCO3 36.2 MMOL/L (20-26); ABG Oxygen Saturation 98.6 % (95-100); ABG PCO2 58.9 MM HG (35-48); ABG PH 7.406 (7.35-7.45); ABG PO2 114.7 MM HG (80-95)
[2021-09-24 05:43] LABS: Basophils # 0.1 10*3/uL (0.0-0.2); Basophils % 0.5 % (0.0-0.8); Eosinophils # 0.6 10*3/uL (0.0-0.87); Eosinophils % 5.2 % (0.00-10.9); Hematocrit 34.2 VOL% (35.7-47.0); Immature Granulocytes % 0.6 %; Immature Granulocytes Absolute 0.07 #; Lymphocytes # 1.3 10*3/uL (1.4-4.0); Lymphocytes % 10.6 % (21.3-54.2); Mean Corpuscular HGB Conc 28.7 GM/DL (32-36); Mean Corpuscular Volume 95.5 FL (87-102); Mean Platelet Volume 10.5 FL (9.6-12.0); Monocytes % 13.5 % (1.7-12.7); Neutrophils % 69.6 % (38.7-73.9); Platelet Count 327 T/CUMM (130-400); Red Blood Count 3.58 MC/CUMM (3.8-5.5); Red Cell Distribution Width 13.5 % (9.3-17.3); White Blood Count 12.3 T/CUMM (4-12)
[2021-09-24 05:44] LABS: Hemoglobin 9.8 GM/DL (12.0-16.0)
[2021-09-24 05:48] LABS: Calcium 8.8 MG/DL (8.5-10.1); Osmolality,Calculated 292.8 MOS/KG (273-304); Potassium 4.7 MMOL/L (3.5-5.1)
[2021-09-24] MEDS: INSULIN REGULAR 100 UNIT/ML SUBCUT SCH ×3 (08:07→17:09)
[2021-09-24] MEDS: POTASSIUM CHLORIDE 20 MEQ TABLET PO SCH ×2 (09:44→17:09)
[2021-09-24] MEDS: NON-FORMULARY MEDICATION (Multivitamin With Iron Tablet) PO SCH (09:44)
[2021-09-24] MEDS: FUROSEMIDE 40 MG/4 ML VIAL IV SCH (09:44)
[2021-09-24] MEDS: ASPIRIN EC 81 MG TABLET PO SCH (09:44)
[2021-09-24] MEDS: METOPROLOL TARTRATE 50 MG TABLET PO SCH (09:44)
[2021-09-24] MEDS: PREGABALIN 25 MG CAPSULE PO SCH (09:44)
[2021-09-24] MEDS: APIXABAN 5 MG TABLET PO SCH (09:44)
[2021-09-24] MEDS: DESITIN 4OZ/NYSTATIN 15 GRAM MIXTURE PASTE TOP SCH (14:09)
[2021-09-24] MEDS: VANCOMYCIN INJ 1,750 MG in SODIUM CHLORIDE 0.9% 500 ML IV SCH (17:47)
[2021-09-25] MEDS: POTASSIUM CHLORIDE 20 MEQ TABLET PO SCH ×4 (00:20→21:31)
[2021-09-25] MEDS: DESITIN 4OZ/NYSTATIN 15 GRAM MIXTURE PASTE TOP SCH ×3 (00:20→21:32)
[2021-09-25] MEDS: METOPROLOL TARTRATE 50 MG TABLET PO SCH ×3 (00:20→21:31)
[2021-09-25] MEDS: PREGABALIN 25 MG CAPSULE PO SCH ×3 (00:20→21:31)
[2021-09-25] MEDS: INSULIN REGULAR 100 UNIT/ML SUBCUT SCH ×4 (00:47→16:55)
[2021-09-25] MEDS: ALBUTEROL/IPRATROPIUM 3 ML NEB RESP TX SCH ×6 (03:41→23:45)
[2021-09-25] MEDS: ASPIRIN EC 81 MG TABLET PO SCH (09:56)
[2021-09-25] MEDS: NON-FORMULARY MEDICATION (Multivitamin With Iron Tablet) PO SCH (10:02)
[2021-09-25] MEDS: FUROSEMIDE 40 MG/4 ML VIAL IV SCH (10:29)
[2021-09-25] MEDS: CARBOXYMETHYLCELLULOSE 1% OPH SOLN BOTH EYES PRN (14:26)
[2021-09-25] MEDS: VANCOMYCIN INJ 1,750 MG in SODIUM CHLORIDE 0.9% 500 ML IV SCH (17:56)
[2021-09-26] MEDS: ALBUTEROL/IPRATROPIUM 3 ML NEB RESP TX SCH ×5 (04:00→19:30)
[2021-09-26 06:00] LABS: Calcium 8.8 MG/DL (8.5-10.1); Osmolality,Calculated 282.3 MOS/KG (273-304); Potassium 5.1 MMOL/L (3.5-5.1)
[2021-09-26 06:26] LABS: Basophils # 0.1 10*3/uL (0.0-0.2); Basophils % 0.4 % (0.0-0.8); Eosinophils # 0.7 10*3/uL (0.0-0.87); Eosinophils % 5.1 % (0.00-10.9); Hematocrit 35.3 VOL% (35.7-47.0); Immature Granulocytes % 0.7 %; Immature Granulocytes Absolute 0.09 #; Lymphocytes # 1.6 10*3/uL (1.4-4.0); Lymphocytes % 12.1 % (21.3-54.2); Mean Corpuscular HGB Conc 28.9 GM/DL (32-36); Mean Corpuscular Volume 96.4 FL (87-102); Mean Platelet Volume 11.2 FL (9.6-12.0); Monocytes % 12.7 % (1.7-12.7); Platelet Count 289 T/CUMM (130-400); Red Blood Count 3.66 MC/CUMM (3.8-5.5); Red Cell Distribution Width 13.5 % (9.3-17.3)
[2021-09-26 06:27] LABS: Hemoglobin 10.2 GM/DL (12.0-16.0)
[2021-09-26] MEDS: INSULIN REGULAR 100 UNIT/ML SUBCUT SCH ×5 (07:04→20:39)
[2021-09-26] MEDS: NON-FORMULARY MEDICATION (Multivitamin With Iron Tablet) PO SCH (08:04)
[2021-09-26] MEDS: POTASSIUM CHLORIDE 20 MEQ TABLET PO SCH ×3 (08:36→20:44)
[2021-09-26] MEDS: ASPIRIN EC 81 MG TABLET PO SCH (08:36)
[2021-09-26] MEDS: METOPROLOL TARTRATE 50 MG TABLET PO SCH ×2 (08:36→20:45)
[2021-09-26] MEDS: FUROSEMIDE 40 MG/4 ML VIAL IV SCH (08:36)
[2021-09-26] MEDS: PREGABALIN 25 MG CAPSULE PO SCH ×2 (08:36→20:44)
[2021-09-26] MEDS: DESITIN 4OZ/NYSTATIN 15 GRAM MIXTURE PASTE TOP SCH ×2 (08:37→20:45)
[2021-09-26] MEDS: LINEZOLID 600 MG TABLET PO SCH (20:44)
[2021-09-27] MEDS: ALBUTEROL/IPRATROPIUM 3 ML NEB RESP TX SCH ×6 (00:41→20:05)
[2021-09-27] MEDS: INSULIN REGULAR 100 UNIT/ML SUBCUT SCH ×4 (09:15→21:17)
[2021-09-27] MEDS: POTASSIUM CHLORIDE 20 MEQ TABLET PO SCH ×3 (09:31→21:16)
[2021-09-27] MEDS: ASPIRIN EC 81 MG TABLET PO SCH (09:31)
[2021-09-27] MEDS: METOPROLOL TARTRATE 50 MG TABLET PO SCH ×2 (09:31→21:17)
[2021-09-27] MEDS: PREGABALIN 25 MG CAPSULE PO SCH ×2 (09:31→21:16)
[2021-09-27] MEDS: LINEZOLID 600 MG TABLET PO SCH ×2 (09:31→21:16)
[2021-09-27] MEDS: FUROSEMIDE 40 MG/4 ML VIAL IV SCH (09:32)
[2021-09-27] MEDS: DESITIN 4OZ/NYSTATIN 15 GRAM MIXTURE PASTE TOP SCH ×2 (09:33→21:16)
[2021-09-27] MEDS: NON-FORMULARY MEDICATION (Multivitamin With Iron Tablet) PO SCH (09:40)
[2021-09-27] MEDS: APIXABAN 5 MG TABLET PO SCH (21:16)
[2021-09-28] MEDS: ALBUTEROL/IPRATROPIUM 3 ML NEB RESP TX SCH ×6 (03:00→21:30)
[2021-09-28 07:50] LABS: Basophils # 0.1 10*3/uL (0.0-0.2); Basophils % 0.3 % (0.0-0.8); Eosinophils # 0.5 10*3/uL (0.0-0.87); Eosinophils % 3.2 % (0.00-10.9); Hematocrit 36.9 VOL% (35.7-47.0); Hemoglobin 10.6 GM/DL (12.0-16.0); Immature Granulocytes % 0.7 %; Lymphocytes # 1.7 10*3/uL (1.4-4.0); Lymphocytes % 11.2 % (21.3-54.2); Mean Corpuscular HGB Conc 28.7 GM/DL (32-36); Mean Corpuscular Volume 95.8 FL (87-102); Neutrophils % 74.6 % (38.7-73.9); Platelet Count 351 T/CUMM (130-400); Red Blood Count 3.85 MC/CUMM (3.8-5.5); Red Cell Distribution Width 13.4 % (9.3-17.3); White Blood Count 15.2 T/CUMM (4-12)
[2021-09-28 07:53] LABS: Bilirubin,Total 0.5 MG/DL (0.20-1.00); Calcium 9.3 MG/DL (8.5-10.1); Osmolality,Calculated 278.5 MOS/KG (273-304); Potassium 4.4 MMOL/L (3.5-5.1); Total Protein 6.9 G/DL (6.4-8.2)
[2021-09-28 08:18] LABS: Platelet Estimate Normal
[2021-09-28 08:19] LABS: Anisocytosis Slight; Hypochromasia Slight; Stomatocytes Few
[2021-09-28] MEDS: PREGABALIN 25 MG CAPSULE PO SCH ×2 (10:39→21:07)
[2021-09-28] MEDS: POTASSIUM CHLORIDE 20 MEQ TABLET PO SCH ×3 (10:39→21:07)
[2021-09-28] MEDS: APIXABAN 5 MG TABLET PO SCH ×2 (10:39→21:07)
[2021-09-28] MEDS: METOPROLOL TARTRATE 50 MG TABLET PO SCH ×2 (10:39→21:07)
[2021-09-28] MEDS: ASPIRIN EC 81 MG TABLET PO SCH (10:39)
[2021-09-28] MEDS: LINEZOLID 600 MG TABLET PO SCH ×2 (10:40→21:07)
[2021-09-28] MEDS: DESITIN 4OZ/NYSTATIN 15 GRAM MIXTURE PASTE TOP SCH ×2 (10:43→21:07)
[2021-09-28] MEDS: FUROSEMIDE 40 MG/4 ML VIAL IV SCH (10:58)
[2021-09-28] MEDS: INSULIN REGULAR 100 UNIT/ML SUBCUT SCH ×4 (11:13→21:00)
[2021-09-28] MEDS: NON-FORMULARY MEDICATION (Multivitamin With Iron Tablet) PO SCH (11:14)
[2021-09-29] MEDS: ALBUTEROL/IPRATROPIUM 3 ML NEB RESP TX SCH ×6 (02:00→20:04)
[2021-09-29] MEDS: INSULIN REGULAR 100 UNIT/ML SUBCUT SCH ×4 (08:17→20:57)
[2021-09-29] MEDS: NON-FORMULARY MEDICATION (Multivitamin With Iron Tablet) PO SCH (09:04)
[2021-09-29] MEDS: ASPIRIN EC 81 MG TABLET PO SCH (09:15)
[2021-09-29] MEDS: APIXABAN 5 MG TABLET PO SCH ×2 (09:15→20:56)
[2021-09-29] MEDS: LINEZOLID 600 MG TABLET PO SCH ×2 (09:15→20:56)
[2021-09-29] MEDS: PREGABALIN 25 MG CAPSULE PO SCH ×2 (09:15→20:56)
[2021-09-29] MEDS: METOPROLOL TARTRATE 50 MG TABLET PO SCH ×2 (09:15→20:56)
[2021-09-29] MEDS: POTASSIUM CHLORIDE 20 MEQ TABLET PO SCH ×3 (09:15→20:56)
[2021-09-29] MEDS: FUROSEMIDE 40 MG/4 ML VIAL IV SCH (09:17)
[2021-09-29] MEDS: DESITIN 4OZ/NYSTATIN 15 GRAM MIXTURE PASTE TOP SCH ×2 (09:21→20:57)
[2021-09-30] MEDS: ALBUTEROL/IPRATROPIUM 3 ML NEB RESP TX SCH ×7 (01:03→23:50)
[2021-09-30 06:03] LABS: Calcium 8.9 MG/DL (8.5-10.1); Osmolality,Calculated 290.7 MOS/KG (273-304); Potassium 4.4 MMOL/L (3.5-5.1)
[2021-09-30 06:36] LABS: Basophils # 0.1 10*3/uL (0.0-0.2); Basophils % 0.7 % (0.0-0.8); Eosinophils # 0.3 10*3/uL (0.0-0.87); Hematocrit 38.4 VOL% (35.7-47.0); Immature Granulocytes % 0.5 %; Immature Granulocytes Absolute 0.06 #; Lymphocytes # 1.9 10*3/uL (1.4-4.0); Lymphocytes % 17.5 % (21.3-54.2); Mean Corpuscular HGB Conc 28.1 GM/DL (32-36); Mean Corpuscular Volume 97.5 FL (87-102); Mean Platelet Volume 10.2 FL (9.6-12.0); Monocytes % 12.5 % (1.7-12.7); Neutrophils % 65.8 % (38.7-73.9); Platelet Count 403 T/CUMM (130-400); Red Blood Count 3.94 MC/CUMM (3.8-5.5); Red Cell Distribution Width 13.3 % (9.3-17.3)
[2021-09-30 06:38] LABS: Hemoglobin 10.8 GM/DL (12.0-16.0)
[2021-09-30] MEDS: ACETAMINOPHEN 325 MG TABLET PO PRN (06:44)
[2021-09-30] MEDS: INSULIN REGULAR 100 UNIT/ML SUBCUT SCH ×4 (09:49→20:48)
[2021-09-30] MEDS: ASPIRIN EC 81 MG TABLET PO SCH (09:51)
[2021-09-30] MEDS: FUROSEMIDE 40 MG/4 ML VIAL IV SCH (09:51)
[2021-09-30] MEDS: NON-FORMULARY MEDICATION (Multivitamin With Iron Tablet) PO SCH (09:52)
[2021-09-30] MEDS: METOPROLOL TARTRATE 50 MG TABLET PO SCH ×2 (09:52→20:52)
[2021-09-30] MEDS: POTASSIUM CHLORIDE 20 MEQ TABLET PO SCH ×3 (09:52→20:52)
[2021-09-30] MEDS: PREGABALIN 25 MG CAPSULE PO SCH ×2 (09:52→20:53)
[2021-09-30] MEDS: APIXABAN 5 MG TABLET PO SCH ×2 (09:52→20:53)
[2021-09-30] MEDS: DESITIN 4OZ/NYSTATIN 15 GRAM MIXTURE PASTE TOP SCH ×2 (09:53→20:53)
[2021-09-30] MEDS: LINEZOLID 600 MG TABLET PO SCH ×2 (10:00→20:53)
[2021-09-30] MEDS: CARBOXYMETHYLCELLULOSE 1% OPH SOLN BOTH EYES PRN (22:25)
[2021-10-01] MEDS: ALBUTEROL/IPRATROPIUM 3 ML NEB RESP TX SCH ×5 (04:00→18:41)
[2021-10-01] MEDS: VANCOMYCIN 50 MG/ML 60 ML/BOTTLE PO SCH ×3 (05:36→17:27)
[2021-10-01 06:40] LABS: Calcium 8.8 MG/DL (8.5-10.1); Osmolality,Calculated 286.8 MOS/KG (273-304)
[2021-10-01] MEDS: FUROSEMIDE 40 MG/4 ML VIAL IV SCH (08:15)
[2021-10-01] MEDS: INSULIN REGULAR 100 UNIT/ML SUBCUT SCH ×4 (08:44→20:54)
[2021-10-01] MEDS: PREGABALIN 25 MG CAPSULE PO SCH ×2 (09:34→20:55)
[2021-10-01] MEDS: METOPROLOL TARTRATE 50 MG TABLET PO SCH (09:34)
[2021-10-01] MEDS: LINEZOLID 600 MG TABLET PO SCH ×2 (09:34→20:56)
[2021-10-01] MEDS: POTASSIUM CHLORIDE 20 MEQ TABLET PO SCH ×3 (09:34→20:56)
[2021-10-01] MEDS: APIXABAN 5 MG TABLET PO SCH ×2 (09:34→20:56)
[2021-10-01] MEDS: ASPIRIN EC 81 MG TABLET PO SCH (09:35)
[2021-10-01] MEDS: NON-FORMULARY MEDICATION (Multivitamin With Iron Tablet) PO SCH (10:35)
[2021-10-01] MEDS: DESITIN 4OZ/NYSTATIN 15 GRAM MIXTURE PASTE TOP SCH ×2 (13:50→20:56)
[2021-10-01] MEDS: METOPROLOL TARTRATE 25 MG TABLET PO SCH (20:56)
[2021-10-02] MEDS: VANCOMYCIN 50 MG/ML 60 ML/BOTTLE PO SCH ×5 (00:04→17:08)
[2021-10-02] MEDS: ALBUTEROL/IPRATROPIUM 3 ML NEB RESP TX SCH ×7 (00:26→23:55)
[2021-10-02 05:33] LABS: Calcium 8.8 MG/DL (8.5-10.1); Osmolality,Calculated 284.1 MOS/KG (273-304); Potassium 4.2 MMOL/L (3.5-5.1)
[2021-10-02 06:08] LABS: Basophils # 0.1 10*3/uL (0.0-0.2); Basophils % 0.6 % (0.0-0.8); Eosinophils # 0.3 10*3/uL (0.0-0.87); Eosinophils % 3.2 % (0.00-10.9); Hematocrit 34.7 VOL% (35.7-47.0); Immature Granulocytes % 0.4 %; Immature Granulocytes Absolute 0.03 #; Lymphocytes # 1.4 10*3/uL (1.4-4.0); Mean Corpuscular HGB Conc 28.8 GM/DL (32-36); Mean Corpuscular Volume 93.5 FL (87-102); Monocytes % 8.9 % (1.7-12.7); Neutrophils % 69.9 % (38.7-73.9); Platelet Count 361 T/CUMM (130-400); Red Blood Count 3.71 MC/CUMM (3.8-5.5); Red Cell Distribution Width 13.2 % (9.3-17.3); White Blood Count 8.3 T/CUMM (4-12)
[2021-10-02] MEDS: FUROSEMIDE 40 MG/4 ML VIAL IV SCH (08:10)
[2021-10-02] MEDS: POTASSIUM CHLORIDE 20 MEQ TABLET PO SCH ×3 (09:22→21:18)
[2021-10-02] MEDS: METOPROLOL TARTRATE 25 MG TABLET PO SCH ×2 (09:22→21:18)
[2021-10-02] MEDS: ASPIRIN EC 81 MG TABLET PO SCH (09:22)
[2021-10-02] MEDS: PREGABALIN 25 MG CAPSULE PO SCH ×2 (09:22→21:18)
[2021-10-02] MEDS: LINEZOLID 600 MG TABLET PO SCH ×2 (09:22→21:18)
[2021-10-02] MEDS: APIXABAN 5 MG TABLET PO SCH ×2 (09:22→21:18)
[2021-10-02] MEDS: DESITIN 4OZ/NYSTATIN 15 GRAM MIXTURE PASTE TOP SCH ×2 (09:23→21:19)
[2021-10-02] MEDS: INSULIN REGULAR 100 UNIT/ML SUBCUT SCH ×4 (10:54→21:19)
[2021-10-02] MEDS: NON-FORMULARY MEDICATION (Multivitamin With Iron Tablet) PO SCH (11:26)
[2021-10-03] MEDS: VANCOMYCIN 50 MG/ML 60 ML/BOTTLE PO SCH ×4 (00:22→17:07)
[2021-10-03] MEDS: ALBUTEROL/IPRATROPIUM 3 ML NEB RESP TX SCH ×4 (03:48→16:02)
[2021-10-03 05:57] LABS: Calcium 9.3 MG/DL (8.5-10.1); Osmolality,Calculated 281.4 MOS/KG (273-304); Potassium 4.1 MMOL/L (3.5-5.1)
[2021-10-03 07:18] LABS: Basophils % 0.5 % (0.0-0.8); Eosinophils # 0.3 10*3/uL (0.0-0.87); Eosinophils % 3.2 % (0.00-10.9); Hematocrit 37.6 VOL% (35.7-47.0); Immature Granulocytes % 0.4 %; Immature Granulocytes Absolute 0.03 #; Lymphocytes # 1.7 10*3/uL (1.4-4.0); Lymphocytes % 21.9 % (21.3-54.2); Mean Corpuscular HGB Conc 29.3 GM/DL (32-36); Monocytes % 8.1 % (1.7-12.7); Neutrophils % 65.9 % (38.7-73.9); Platelet Count 274 T/CUMM (130-400); Red Cell Distribution Width 13.2 % (9.3-17.3); White Blood Count 7.9 T/CUMM (4-12)
[2021-10-03] MEDS: INSULIN REGULAR 100 UNIT/ML SUBCUT SCH ×3 (09:17→16:56)
[2021-10-03] MEDS: LINEZOLID 600 MG TABLET PO SCH (09:20)
[2021-10-03] MEDS: PREGABALIN 25 MG CAPSULE PO SCH (09:20)
[2021-10-03] MEDS: POTASSIUM CHLORIDE 20 MEQ TABLET PO SCH ×2 (09:20→14:55)
[2021-10-03] MEDS: METOPROLOL TARTRATE 25 MG TABLET PO SCH (09:20)
[2021-10-03] MEDS: APIXABAN 5 MG TABLET PO SCH (09:21)
[2021-10-03] MEDS: ASPIRIN EC 81 MG TABLET PO SCH (09:21)
[2021-10-03] MEDS: FUROSEMIDE 40 MG/4 ML VIAL IV SCH (09:21)
[2021-10-03] MEDS ORDERED: FLUCONAZOLE 200 MG TABLET PO ONE (10:04)
[2021-10-03] MEDS: NON-FORMULARY MEDICATION (Multivitamin With Iron Tablet) PO SCH (10:33)
[2021-10-03] MEDS: DESITIN 4OZ/NYSTATIN 15 GRAM MIXTURE PASTE TOP SCH (10:33)
[2021-10-03 16:10] VITALS: BP 102/46
== END 2021-10-03 17:56 | DRG 189 ==
LOC: N.ED 17:44 → N.EDINP 20:26 → SUATTDRO 20:26 → N.TELES 09-19 12:15 → N.ICU 09-20 09:31 → N.TELEN 09-21 14:52
PROVIDERS: ADMIT Emergency Medicine; ATTEND Internal Medicine

== ENCOUNTER 2021-10-07 20:32 | Inpatient (IN) ==
[2021-10-07] MEDS ORDERED: ONDANSETRON 4 MG/2 ML VIAL IV STA (20:48)
[2021-10-07] MEDS ORDERED: methylPREDNISolone SOD SUC 125 MG/2 ML VIAL IV STA (20:48)
[2021-10-07 21:29] LABS: Basophils # 0.1 10*3/uL (0.0-0.2); Basophils % 0.8 % (0.0-0.8); Eosinophils # 0.1 10*3/uL (0.0-0.87); Eosinophils % 0.8 % (0.00-10.9); Hemoglobin 10.5 GM/DL (12.0-16.0); Immature Granulocytes % 0.4 %; Immature Granulocytes Absolute 0.04 #; Lymphocytes # 1.3 10*3/uL (1.4-4.0); Lymphocytes % 14.1 % (21.3-54.2); Mean Corpuscular HGB Conc 27.6 GM/DL (32-36); Mean Corpuscular Volume 97.4 FL (87-102); Mean Platelet Volume 10.1 FL (9.6-12.0); Monocytes % 9.1 % (1.7-12.7); Neutrophils % 74.8 % (38.7-73.9); Platelet Count 151 T/CUMM (130-400); Red Cell Distribution Width 12.9 % (9.3-17.3); White Blood Count 9.1 T/CUMM (4-12)
[2021-10-07 21:58] LABS: ABG Base Excess 10.7 MMOL/L (-2.5-2.5); ABG HCO3 34.5 MMOL/L (20-26); ABG Oxygen Saturation 99.8 % (95-100); ABG TCO2 43.2 MMOL/L (23-27)
[2021-10-07 21:59] LABS: ABG PH 7.124 (7.35-7.45)
[2021-10-07 22:02] LABS: Albumin 2.5 G/DL (3.4-5.0); Bilirubin,Total 0.4 MG/DL (0.20-1.00); Calcium 9.4 MG/DL (8.5-10.1); Osmolality,Calculated 287.3 MOS/KG (273-304); Potassium 4.5 MMOL/L (3.5-5.1); Total Protein 7.5 G/DL (6.4-8.2)
[2021-10-08] MEDS ORDERED: ONDANSETRON 4 MG/2 ML VIAL IV PRN (00:25)
[2021-10-08] MEDS ORDERED: GLUCAGON 1 MG VIAL IM PRN (00:25)
[2021-10-08] MEDS ORDERED: DEXTROSE 50% 25 GM/50 ML SYRINGE IV PRN (00:25)
[2021-10-08] MEDS ORDERED: ENOXAPARIN 40 MG/0.4 ML SYRINGE SUBCUT SCH (01:00)
[2021-10-08 01:18] LABS: ABG Base Excess 10.2 MMOL/L (-2.5-2.5); ABG HCO3 33.9 MMOL/L (20-26); ABG PO2 77.2 MM HG (80-95)
[2021-10-08] MEDS: SODIUM CHLORIDE 0.9% 1,000 ML IV SCH (02:50)
[2021-10-08] MEDS ORDERED: SODIUM CHLORIDE 0.9% 500 ML IV ONE (02:56)
[2021-10-08] MEDS ORDERED: LEVOFLOXACIN INJ 750 MG/150 ML PREMIX IV SCH (03:00)
[2021-10-08] MEDS ORDERED: VANCOMYCIN INJ 2,000 MG in SODIUM CHLORIDE 0.9% 500 ML IV STA (03:08)
[2021-10-08] MEDS ORDERED: PANTOPRAZOLE 40 MG VIAL IV SCH (09:00)
[2021-10-08] MEDS ORDERED: LORazepam 2 MG/1 ML VIAL IV PRN (10:01)
[2021-10-08] MEDS ORDERED: VANCOMYCIN INJ 1,250 MG in SODIUM CHLORIDE 0.9% 250 ML IV SCH (15:30)
[2021-10-08] MEDS: MORPHINE 2 MG/1 ML SYRINGE IV PRN (18:24)
[2021-10-09] MEDS: MORPHINE 2 MG/1 ML SYRINGE IV PRN (16:32)
[2021-10-09] MEDS: SODIUM CHLORIDE 0.9% 1,000 ML IV SCH ×2 (17:52→21:18)
[2021-10-10] MEDS: SODIUM CHLORIDE 0.9% 1,000 ML IV SCH (13:39)
[2021-10-10] MEDS: MORPHINE 2 MG/1 ML SYRINGE IV PRN ×2 (15:24→21:16)
[2021-10-11 07:48] VITALS: BP 114/65
[2021-10-11] MEDS ORDERED: VANCOMYCIN 50 MG/ML 60 ML/BOTTLE PO SCH (09:00)
== END 2021-10-11 11:43 | disposition hospice, inpatient (51) | DRG 189 ==
LOC: EDBD → EDUNIT# → N.ED 20:32 → N.EDINP 10-08 00:01 → N.5E 10-08 04:32
PROVIDERS: ADMIT Internal Medicine Geriatric Medicine; ATTEND Internal Medicine Geriatric Medicine

== ENCOUNTER 2021-11-21 08:39 | Inpatient (IN) ==
[2021-11-21 09:58] LABS: Basophils # 0.1 10*3/uL (0.0-0.2); Basophils % 0.5 % (0.0-0.8); Eosinophils # 0.4 10*3/uL (0.0-0.87); Eosinophils % 2.6 % (0.00-10.9); Hematocrit 29.7 VOL% (35.7-47.0); Immature Granulocytes % 0.6 %; Immature Granulocytes Absolute 0.11 #; Lymphocytes # 1.9 10*3/uL (1.4-4.0); Lymphocytes % 10.9 % (21.3-54.2); Mean Corpuscular HGB Conc 27.6 GM/DL (32-36); Mean Corpuscular Volume 92.8 FL (87-102); Mean Platelet Volume 10.8 FL (9.6-12.0); Monocytes % 13.4 % (1.7-12.7); NRBC # 0.02 10*3/uL; Platelet Count 495 T/CUMM (130-400); Red Cell Distribution Width 15.2 % (9.3-17.3); White Blood Count 17.1 T/CUMM (4-12)
[2021-11-21 10:20] LABS: Hemoglobin 8.2 GM/DL (12.0-16.0)
[2021-11-21] MEDS ORDERED: SODIUM CHLORIDE 0.9% 500 ML IV STA (10:24)
[2021-11-21 10:56] LABS: Albumin 2.5 G/DL (3.4-5.0); Bilirubin,Total 0.4 MG/DL (0.20-1.00); Calcium 9.4 MG/DL (8.5-10.1); Osmolality,Calculated 297.1 MOS/KG (273-304); Potassium 4.6 MMOL/L (3.5-5.1)
[2021-11-21] MEDS ORDERED: OXYMETAZOLINE 0.05% NASAL SPRAY 15 ML BOTTLE BOTH NARES STA (11:28)
[2021-11-21] MEDS ORDERED: cefTRIAXone 1,000 MG in SODIUM CHLORIDE 0.9% 100 ML IV STA (11:43)
[2021-11-21 13:05] LABS: Bilirubin,Urine Negative (Negative); Blood, Urine Large mg/dL (Negative); Glucose,Urine (UA) Negative (Negative); Hyaline Casts,Urine 17 /LPF (0-3); Ketones,Urine Negative (Negative); Nitrite,Urine Negative (Negative); Protein,Urine 100 MG/DL; RBC,Urine 839 /HPF (0-4); Urine Appearance CLOUDY (Clear); Urine Color Yellow (Yellow); Urine Specific Gravity 1.013 (1.001-1.035); Urine Urobilinogen < 2.0 EU/DL (<2.0)
[2021-11-21 13:13] LABS: INR 1.1; PT Patient Result 12.3 SECS (10.5-12.0)
[2021-11-21] MEDS ORDERED: CYCLOBENZAPRINE 10 MG TABLET PO PRN (14:29)
[2021-11-21] MEDS ORDERED: MORPHINE SL PRN (14:29)
[2021-11-21] MEDS ORDERED: GLUCAGON 1 MG VIAL IM PRN ×2 (14:43→14:49)
[2021-11-21] MEDS ORDERED: ONDANSETRON 4 MG/2 ML VIAL IV PRN (14:43)
[2021-11-21] MEDS ORDERED: guaiFENesin/DM ER 600-30 MG TABLET PO PRN (14:43)
[2021-11-21] MEDS ORDERED: ACETAMINOPHEN 325 MG TABLET PO PRN (14:43)
[2021-11-21] MEDS ORDERED: OXYMETAZOLINE 0.05% NASAL SPRAY 15 ML BOTTLE BOTH NARES PRN (14:48)
[2021-11-21] MEDS ORDERED: DEXTROSE 50% 25 GM/50 ML VIAL IV PRN (14:49)
[2021-11-21] MEDS ORDERED: DEXTROSE 10% 250 ML BAG IV PRN (14:50)
[2021-11-21 15:39] LABS: Thyroid Stimulating Hormone 1.06 uIU/ml (0.358-3.74)
[2021-11-21] MEDS: PREGABALIN 50 MG CAPSULE PO SCH (16:50)
[2021-11-21] MEDS: POTASSIUM CHLORIDE 20 MEQ TABLET PO SCH ×2 (16:50→22:34)
[2021-11-21] MEDS: METOPROLOL TARTRATE 25 MG TABLET PO SCH (22:34)
[2021-11-21] MEDS: acetaZOLAMIDE 250 MG TABLET PO SCH (22:34)
[2021-11-22] MEDS: PREGABALIN 50 MG CAPSULE PO SCH ×3 (02:17→20:19)
[2021-11-22 06:14] LABS: Alanine Aminotransferase 9 U/L (13-56); Albumin 2.3 G/DL (3.4-5.0); Alkaline Phosphatase 92 U/L (45-117); Aspartate Amino Transferase 15 U/L (0-37); Bilirubin,Total < 0.39 MG/DL (0.20-1.00); Blood Urea Nitrogen 48 MG/DL (7-18); Calcium 9.4 MG/DL (8.5-10.1); Carbon Dioxide 29 MMOL/L (21-32); Estimated Glom Filtration Rate 65 ML/MIN; Glucose 116 MG/DL (74-106); HDL Cholesterol 40 MG/DL (40-60); Potassium 5.1 MMOL/L (3.5-5.1); Risk Ratio 2.85; Sodium 143 MMOL/L (136-145); Total Protein 6.9 G/DL (6.4-8.2); Triglycerides 100 MG/DL (2-150)
[2021-11-22 06:25] LABS: Basophils # 0.1 10*3/uL (0.0-0.2); Basophils % 0.6 % (0.0-0.8); Eosinophils # 0.4 10*3/uL (0.0-0.87); Eosinophils % 2.4 % (0.00-10.9); Hematocrit 29.9 VOL% (35.7-47.0); Immature Granulocytes % 0.6 %; Lymphocytes # 1.9 10*3/uL (1.4-4.0); Lymphocytes % 12.1 % (21.3-54.2); Mean Corpuscular HGB Conc 28.1 GM/DL (32-36); Mean Corpuscular Volume 92.6 FL (87-102); Mean Platelet Volume 10.9 FL (9.6-12.0); Monocytes % 12.1 % (1.7-12.7); NRBC # 0.02 10*3/uL; Neutrophils % 72.2 % (38.7-73.9); Platelet Count 439 T/CUMM (130-400); Red Blood Count 3.23 MC/CUMM (3.8-5.5); Red Cell Distribution Width 15.3 % (9.3-17.3); White Blood Count 15.8 T/CUMM (4-12)
[2021-11-22 06:32] LABS: Hemoglobin 8.4 GM/DL (12.0-16.0)
[2021-11-22 06:36] LABS: Platelet Estimate Normal
[2021-11-22 06:39] LABS: Anisocytosis 2+; Polychromasia Slight
[2021-11-22] MEDS: MULTIVITAMIN (CENTRUM) TABLET PO SCH (08:29)
[2021-11-22] MEDS: PANTOPRAZOLE 40 MG TABLET PO SCH (08:30)
[2021-11-22] MEDS: acetaZOLAMIDE 250 MG TABLET PO SCH ×2 (08:30→20:18)
[2021-11-22] MEDS: cefTRIAXone 1,000 MG in SODIUM CHLORIDE 0.9% 100 ML IV SCH (08:30)
[2021-11-22] MEDS: METOPROLOL TARTRATE 25 MG TABLET PO SCH ×2 (08:30→20:19)
[2021-11-22] MEDS: POTASSIUM CHLORIDE 20 MEQ TABLET PO SCH ×3 (08:36→20:19)
[2021-11-23 08:42] LABS: Calcium 8.8 MG/DL (8.5-10.1); Osmolality,Calculated 292.3 MOS/KG (273-304); Potassium 4.9 MMOL/L (3.5-5.1)
[2021-11-23] MEDS: acetaZOLAMIDE 250 MG TABLET PO SCH ×2 (09:58→20:49)
[2021-11-23] MEDS: MULTIVITAMIN (CENTRUM) TABLET PO SCH (09:59)
[2021-11-23] MEDS: PANTOPRAZOLE 40 MG TABLET PO SCH (09:59)
[2021-11-23] MEDS: PREGABALIN 50 MG CAPSULE PO SCH ×2 (09:59→20:49)
[2021-11-23] MEDS: METOPROLOL TARTRATE 25 MG TABLET PO SCH ×2 (09:59→20:50)
[2021-11-23] MEDS: cefTRIAXone 1,000 MG in SODIUM CHLORIDE 0.9% 100 ML IV SCH (10:00)
[2021-11-23] MEDS: POTASSIUM CHLORIDE 20 MEQ TABLET PO SCH ×3 (10:05→20:49)
[2021-11-23 10:14] LABS: Basophils # 0.1 10*3/uL (0.0-0.2); Basophils % 0.5 % (0.0-0.8); Eosinophils % 7.6 % (0.00-10.9); Hematocrit 27.6 VOL% (35.7-47.0); Hemoglobin 7.5 GM/DL (12.0-16.0); Immature Granulocytes % 0.5 %; Immature Granulocytes Absolute 0.07 #; Lymphocytes # 2.2 10*3/uL (1.4-4.0); Lymphocytes % 17.2 % (21.3-54.2); Mean Corpuscular HGB Conc 27.2 GM/DL (32-36); Mean Corpuscular Volume 93.6 FL (87-102); Monocytes % 12.5 % (1.7-12.7); NRBC # 0.03 10*3/uL; Neutrophils % 61.7 % (38.7-73.9); Platelet Count 411 T/CUMM (130-400); Red Blood Count 2.95 MC/CUMM (3.8-5.5); Red Cell Distribution Width 15.1 % (9.3-17.3); White Blood Count 12.8 T/CUMM (4-12)
[2021-11-24 06:43] LABS: Basophils % 0.3 % (0.0-0.8); Eosinophils # 0.5 10*3/uL (0.0-0.87); Hematocrit 28.7 VOL% (35.7-47.0); Immature Granulocytes % 0.5 %; Immature Granulocytes Absolute 0.05 #; Lymphocytes # 1.4 10*3/uL (1.4-4.0); Lymphocytes % 15.2 % (21.3-54.2); Mean Corpuscular HGB Conc 27.9 GM/DL (32-36); Mean Corpuscular Volume 92.9 FL (87-102); Mean Platelet Volume 11.3 FL (9.6-12.0); Monocytes % 13.4 % (1.7-12.7); NRBC # 0.02 10*3/uL; Neutrophils % 65.6 % (38.7-73.9); Platelet Count 361 T/CUMM (130-400); Red Blood Count 3.09 MC/CUMM (3.8-5.5); Red Cell Distribution Width 14.9 % (9.3-17.3); White Blood Count 9.5 T/CUMM (4-12)
[2021-11-24] MEDS: acetaZOLAMIDE 250 MG TABLET PO SCH (10:33)
[2021-11-24] MEDS: METOPROLOL TARTRATE 25 MG TABLET PO SCH (10:33)
[2021-11-24] MEDS: PANTOPRAZOLE 40 MG TABLET PO SCH (10:33)
[2021-11-24] MEDS: MULTIVITAMIN (CENTRUM) TABLET PO SCH (10:33)
[2021-11-24] MEDS: POTASSIUM CHLORIDE 20 MEQ TABLET PO SCH (10:33)
[2021-11-24] MEDS: PREGABALIN 50 MG CAPSULE PO SCH (10:33)
[2021-11-24] MEDS: cefTRIAXone 1,000 MG in SODIUM CHLORIDE 0.9% 100 ML IV SCH (11:43)
[2021-11-24 12:57] VITALS: BP 104/66
[2021-11-24] MEDS ORDERED: cephALEXin 500 MG CAPSULE PO SCH (21:00)
== END 2021-11-24 13:15 | DRG 813 ==
LOC: EDUNIT# → SUATTDRO → EDBD → N.ED 08:39 → N.EDINP 14:42 → N.TELEN 11-22 00:57
PROVIDERS: ADMIT Internal Medicine; ATTEND Internal Medicine Geriatric Medicine